=== PATIENT | female | born 1930 | race Caucasian/White ===

== ENCOUNTER 2017-07-07 19:16 | Inpatient (IN) | payer MEDICARE, OTHER ==
[2017-07-07 19:16] VITALS: BMI 20.9
[2017-07-07] MEDS ORDERED: Sodium Chloride 0.9% 1,000 ML IV ONE (19:36)
--- NOTE | 2017-07-07 19:39 | C.PDOC ---
History Of Present Illness 87 year old female with PMHx of pulmonary fibrosis presents to the ED c/o right sided abdominal pain radiating to her back for the past 3 days. Patient states she has not been able to eat or sleep due to her pain. Patient is currently moaning in pain, with rapid breathin .Patient denies fever, chills, nausea, vomit, SOB, CP, weakness, numbness. Chief Complaint (Nursing): Abdominal Pain History Per: Patient, Family History/Exam Limitations: no limitations Onset/Duration Of Symptoms: Days Current Symptoms Are (Timing): Still Present Location Of Pain/Discomfort: RUQ, RLQ Radiation Of Pain To:: Back Quality Of Discomfort: "Pain" Associated Symptoms: Diarrhea, Loss Of Appetite Exacerbating Factors: None Alleviating Factors: None Recent travel outside of the [place]: No Additional History Per: Patient Abnormal Vaginal Bleeding: No Past Medical History Reviewed: Historical Data, Nursing Documentation, Vital Signs Vital Signs: Last Vital Signs Temp 98.6 F 07/08/17 00:15 Pulse 115 H 07/08/17 00:15 Resp 18 07/08/17 01:03 BP 108/54 L 07/08/17 00:15 Pulse Ox 99 07/08/17 00:15 - Medical History PMH: CHF Denies: Chronic Kidney Disease Other PMH: Pulmonary fibrosis Surgical History: Hernia Repair (Abdominal) Family History: States: Unknown Family Hx - Social History Hx Tobacco Use: No Hx Alcohol Use: No Hx Substance Use: No - Immunization History Hx Tetanus Toxoid Vaccination: No Hx Influenza Vaccination: No Hx Pneumococcal Vaccination: No Review Of Systems Constitutional: Negative for: Fever, Chills Cardiovascular: Negative for: Chest Pain Respiratory: Negative for: Cough, Shortness of Breath Gastrointestinal: Positive for: Abdominal Pain, Diarrhea Genitourinary: Negative for: Dysuria Musculoskeletal: Positive for: Back Pain Skin: Negative for: Rash Neurological: Negative for: Weakness, Numbness, Headache Physical Exam - Physical Exam Appears: Non-toxic, In Acute Distress (secondary to pain, moaning in pain) Skin: Normal Color, Warm, Dry Head: Atraumatic, Normacephalic Eye(s): bilateral: Normal Inspection Nose: No Discharge, No Deformity Oral Mucosa: Moist Neck: Normal ROM, Supple Chest: Symmetrical Cardiovascular: Rhythm Regular (Tachycardic), No Murmur Respiratory: No Rales, No Rhonchi, No Wheezing, Other (B/L crackles right hemithorax, egophony positive) Gastrointestinal/Abdominal: Soft, Tenderness (Right sided abdomen ), No Guarding , No Rebound Extremity: Normal ROM, No Pedal Edema, Capillary Refill (< 2 seconds), No Swelling Pulses: Left Dorsalis Pedis: Normal, Right Dorsalis Pedis: Normal Neurological/Psych: Oriented x3, Normal Speech, Normal Cognition Gait: Steady ED Course And Treatment - Laboratory Results Result Diagrams: 07/07/17 20:16 07/07/17 20:42 ECG: Interpreted By Me, Viewed By Me ECG Rhythm: Sinus Tachycardia ECG Interpretation: No Acute Changes Rate From EC O2 Sat by Pulse Oximetry: 93 (On RA) - Radiology CXR: Interpreted by Me, Viewed By Mo CXR Interpretation: Yes: Other (Fibrotic changes throughout both lungs, unchanged from prior) - CT Scan/US CT abd/pelvis Other Rad Studies (CT/US): Read By Radiologist, Radiology Report Reviewed CT/US Interpretation: EXAM: CT Abdomen and Pelvis Without Intravenous Contrast. CLINICAL HISTORY: 87 years old, female; Pain; Abdominal pain; Generalized; Additional info: Abd pain. TECHNIQUE: Axial computed tomography images of the abdomen and pelvis without intravenous contrast. All CT. scans at this facility use one or more dose reduction techniques, viz.: automated exposure control;. ma/kV adjustment per patient size (including targeted exams where dose is matched to indication; i.e. head); or iterative reconstruction technique. Coronal and sagittal reformatted images were created and reviewed. COMPARISON: No relevant prior studies available. FINDINGS: Limitations: Lack of intravenous contrast. Motion artifact - mild. Lower thorax: Coronary artery calcifications. Extensive pulmonary fibrosis. Patchy and confluent. airspace disease throughout lung bases. ABDOMEN: Liver: Unremarkable. Gallbladder and bile ducts: Gallstones. No significant ductal dilation. Pancreas: Unremarkable. No ductal dilation. Spleen: No splenomegaly. Adrenals: Mild hypertrophy of adrenal glands. Kidneys and ureters: No renal calculi. No hydronephrosis.Stomach and bowel: Fluid within small bowel. Fluid/loose stool within large bowel. No definite. mural thickening. Few minimally distended loops of small bowel, likely ileus. Appendix: No findings to suggest acute appendicitis. PELVIS: Bladder: Unremarkable. No stones. Reproductive: Unremarkable as visualized. ABDOMEN and PELVIS: Intraperitoneal space: No significant fluid collection. No free air. Bones/joints: Mild degenerative changes of spine. Mild compression deformity T12 vertebral body,. chronic. Soft tissues: Small umbilical hernia containing fat. Vasculature: Mild atherosclerotic disease. No aneurysm. Lymph nodes: No pathologically enlarged lymph nodes. IMPRESSION: 1. Probable multifocal pneumonia superimposed on extensive fibrosis. 2. Fluid/loose stool within bowel may suggest diarrhea illness. 3. Incidental/non-acute findings are described above. Medical Decision Making Medical Decision Making: Impression: abdominal pain Plan: * CT abd/pelvis * CXR * EKG * Labs * Morphine 4 mg IVP * IV fluids * Blood culture Disposition - Disposition Disposition: HOSPITALIZED Disposition Time: 05:50 Condition: STABLE - Clinical Impression Clinical Impression: Pneumonia, Abdominal wall pain - Scribe Statement The provider has reviewed the documentation as recorded by the Scribe Lawson Peterson All medical record entries made by the Scribe were at my direction and personally dictated by me. I have reviewed the chart and agree that the record accurately reflects my personal performance of the history, physical exam, medical decision making, and the department course for this patient. I have also personally directed, reviewed, and agree with the discharge instructions and disposition.
[2017-07-07] MEDS ORDERED: Morphine 4 MG/ML VIAL ONE (19:50)
[2017-07-07 20:19] LABS: HEMOGLOBIN 12.8 g/dL (11.0-16.0); MONO # 0.6 K/uL (0.0-0.8); NRBC % 0.1 % (0.0-2.0); RBC 4.44 Mil/uL (3.80-5.20); RED CELL DISTRIBUTION WIDTH 13.9 % (11.5-14.5)
[2017-07-07 20:21] LABS: BASO % 0.2 % (0.0-2.0); LYMPH # 0.8 K/uL (1.0-4.3); LYMPH % 12.1 % (20.0-40.0); MEAN CELL VOLUME 85.7 fL (81.0-99.0); MEAN CORPUSCULAR HEMOGLOBIN 28.9 pg (27.0-31.0); MEAN CORPUSCULAR HGB CONC 33.7 g/dL (33.0-37.0); MEAN PLATELET VOLUME 9.4 fL (7.2-11.7); MONO % 9.8 % (0.0-10.0); NEUT # 5.1 K/uL (1.8-7.0); NEUT % 77.9 % (50.0-75.0); WHITE BLOOD COUNT 6.5 K/uL (4.8-10.8)
[2017-07-07] MEDS ORDERED: Albuterol-Ipratrop 3 mg / 0.5 (3 ml) UD ONE (20:45)
--- NOTE | 2017-07-07 20:57 | CT ---
EXAM: CT Abdomen and Pelvis Without Intravenous Contrast CLINICAL HISTORY: 87 years old, female; Pain; Abdominal pain; Generalized; Additional info: Abd pain TECHNIQUE: Axial computed tomography images of the abdomen and pelvis without intravenous contrast. All CT scans at this facility use one or more dose reduction techniques, viz.: automated exposure control; ma/kV adjustment per patient size (including targeted exams where dose is matched to indication; i.e. head); or iterative reconstruction technique. Coronal and sagittal reformatted images were created and reviewed. COMPARISON: No relevant prior studies available. FINDINGS: Limitations: Lack of intravenous contrast. Motion artifact - mild. Lower thorax: Coronary artery calcifications. Extensive pulmonary fibrosis. Patchy and confluent airspace disease throughout lung bases. ABDOMEN: Liver: Unremarkable. Gallbladder and bile ducts: Gallstones. No significant ductal dilation. Pancreas: Unremarkable. No ductal dilation. Spleen: No splenomegaly. Adrenals: Mild hypertrophy of adrenal glands. Kidneys and ureters: No renal calculi. No hydronephrosis. Stomach and bowel: Fluid within small bowel. Fluid/loose stool within large bowel. No definite mural thickening. Few minimally distended loops of small bowel, likely ileus. Appendix: No findings to suggest acute appendicitis. PELVIS: Bladder: Unremarkable. No stones. Reproductive: Unremarkable as visualized. ABDOMEN and PELVIS: Intraperitoneal space: No significant fluid collection. No free air. Bones/joints: Mild degenerative changes of spine. Mild compression deformity T12 vertebral body, chronic. Soft tissues: Small umbilical hernia containing fat. Vasculature: Mild atherosclerotic disease. No aneurysm. Lymph nodes: No pathologically enlarged lymph nodes. IMPRESSION: 1. Probable multifocal pneumonia superimposed on extensive fibrosis. 2. Fluid/loose stool within bowel may suggest diarrhea illness. 3. Incidental/non-acute findings are described above.
[2017-07-07 21:00] LABS: INR 1.4; PROTHROMBIN TIME 15.4 SECONDS (9.7-12.2)
[2017-07-07 21:08] LABS: ALB/GLOB RATIO 0.9 (1.0-2.1); ALBUMIN 3.3 g/dL (3.5-5.0); ALT/SGPT 22 U/L (9-52); AST/SGOT 30 U/L (14-36); BLOOD UREA NITROGEN 37 mg/dL (7-17); CALCIUM 7.9 mg/dl (8.6-10.4); GFR AFRICAN-AMERICAN > 60; GFR NON-AFRICAN AMERICAN 59; LIPASE 45 U/L (23-300)
[2017-07-07 21:20] LABS: B-TYPE NATRIURETIC PEPTIDE 580 pg/mL (0-900)
[2017-07-07] MEDS ORDERED: cefTRIAXone IV 1 gm in Dextros 50 ML IVPB STA (21:32)
[2017-07-07] MEDS ORDERED: Azithromycin 500 MG in Sodium Chloride 0.9% 250 ML IVPB STA (21:32)
[2017-07-08] MEDS ORDERED: Pneumococcal 23-Valent Vaccine IM ONE (00:28)
[2017-07-08] MEDS ORDERED: raNITIdine HCl 150 mg/10 ml Soln Cup PO PRN (00:34)
[2017-07-08] MEDS ORDERED: Morphine 4 MG/ML VIAL IVP PRN (00:48)
[2017-07-08] MEDS ORDERED: Potassium Chloride 20 mEq/15 ml LIQ UD PO ONE (00:48)
[2017-07-08] MEDS: Promethazine/Cod 6.25mg-10mg/5ml Syr UD PO PRN ×2 (01:22→10:38)
[2017-07-08] MEDS: Albuterol-Ipratrop 3 mg / 0.5 (3 ml) UD INH SCH ×5 (06:13→19:29)
[2017-07-08 08:22] LABS: BASO % 0.3 % (0.0-2.0); EOS % 0.1 % (0.0-4.0); HEMOGLOBIN 10.9 g/dL (11.0-16.0); LYMPH # 0.8 K/uL (1.0-4.3); LYMPH % 13.9 % (20.0-40.0); MEAN CELL VOLUME 86.2 fL (81.0-99.0); MEAN CORPUSCULAR HEMOGLOBIN 28.7 pg (27.0-31.0); MEAN CORPUSCULAR HGB CONC 33.3 g/dL (33.0-37.0); MEAN PLATELET VOLUME 9.5 fL (7.2-11.7); MONO # 0.4 K/uL (0.0-0.8); MONO % 6.3 % (0.0-10.0); NEUT # 4.6 K/uL (1.8-7.0); NEUT % 79.4 % (50.0-75.0); RBC 3.79 Mil/uL (3.80-5.20); RED CELL DISTRIBUTION WIDTH 14.2 % (11.5-14.5); WHITE BLOOD COUNT 5.7 K/uL (4.8-10.8)
[2017-07-08 08:51] LABS: ALB/GLOB RATIO 0.8 (1.0-2.1); ALBUMIN 2.8 g/dL (3.5-5.0); ALT/SGPT 22 U/L (9-52); AST/SGOT 26 U/L (14-36); BLOOD UREA NITROGEN 37 mg/dL (7-17); CALCIUM 7.7 mg/dl (8.6-10.4); GFR AFRICAN-AMERICAN > 60; GFR NON-AFRICAN AMERICAN 59
[2017-07-08] MEDS ORDERED: cefTRIAXone IV 1 gm in Dextros 1 GM in Sodium Chloride 0.9% 100 ML IVPB SCH (10:00)
[2017-07-08] MEDS: Dorzolamide 2% Opht Sol 10ml OU SCH ×3 (10:36→18:56)
[2017-07-08] MEDS: Brimonidine 0.2% Opth Sol (5ml) OU SCH ×3 (10:36→18:57)
[2017-07-08] MEDS: Enoxaparin 40 mg Syringe SC SCH (10:37)
[2017-07-08] MEDS: Calcium-Vit D 500 mg-200 Units Tab UD PO SCH ×2 (10:37→18:56)
--- NOTE | 2017-07-08 10:58 | RAD ---
PROCEDURE: CHEST RADIOGRAPH, 1 VIEW HISTORY: abd pain COMPARISON: Comparison is made with 01/17/2015 FINDINGS: LUNGS: Diffuse reticular and opacities are again seen more prominent at the lower lobes suggestive of interstitial lung disease and possible lung fibrosis. PLEURA: No pneumothorax or pleural fluid seen. CARDIOVASCULAR: Normal. OSSEOUS STRUCTURES: No significant abnormalities. VISUALIZED UPPER ABDOMEN: Normal. OTHER FINDINGS: None. IMPRESSION: Chronic interstitial lung disease. No evidence of free air in the upper abdomen in this portable study.
--- NOTE | 2017-07-08 12:22 | CP.PCM.CON ---
History of Present Illness - History of Present Illness History of Present Illness: Reason for consultation: cough and shortness of breath 87-year-old female with history of pulmonary fibrosis, urinary incontinence and gastritis presented to emergency room complaining of cough and shortness of breath. Patient was started on IV antibiotics with a diagnosis of pneumonia. Patient had CAT scan of chest done in 2016 consistent with extensive pulmonary fibrosis. Considering patient age biopsy was not done and patient was treated with steroids. Patient denies fever chills but complaining of abdominal pain. No nausea vomiting She has never smoked and denies any allergies. Patient is from [facility] but denies travel in the last 4 years. She denies any recent sick contacts. Review of Systems - Review of Systems All systems: reviewed and no additional remarkable complaints except (dry cough) Past Patient History - Infectious Disease Hx of Infectious Diseases: None - Tetanus Immunizations Tetanus Immunization: Unknown - Past Medical History & Family History Past Medical History?: Yes - Past Social History Smoking Status: Never Smoked - CARDIAC Hx Congestive Heart Failure: Yes - PULMONARY Hx Respiratory Disorders: Yes (Pulmonary Fibrosis) Other/Comment: Pt states she has pulmonary fibrosis - NEUROLOGICAL Hx Neurological Disorder: No - HEENT Hx HEENT Problems: Yes Hx Blind: Yes (right eye blind) Hx Cataracts: Yes (had cataract eye surgery bilateral) Hx Glaucoma: Yes (left eye) - RENAL Hx Chronic Kidney Disease: No - ENDOCRINE/METABOLIC Hx Endocrine Disorders: No - HEMATOLOGICAL/ONCOLOGICAL Hx Blood Disorders: No - INTEGUMENTARY Hx Dermatological Problems: No - MUSCULOSKELETAL/RHEUMATOLOGICAL Hx Musculoskeletal Disorders: Yes Hx Falls: No Hx Fractures: Yes (Right foot 1999) - GASTROINTESTINAL Hx Gastrointestinal Disorders: Yes Hx Diarrhea: Yes (x3 days) Other/Comment: Poor appetite - GENITOURINARY/GYNECOLOGICAL Hx Genitourinary Disorders: Yes Hx Incontinence: Yes (had prior surgery for urinary incontinence) - PSYCHIATRIC Hx Substance Use: No - SURGICAL HISTORY Hx Surgeries: Yes (urinary incontinence sx,) Hx Cataract Extraction: Yes (B/L) Hx Herniorrhaphy: Yes Hx Musculoskeletal Surgery: Yes (Right foot) Other/Comment: abdominal hernia repair - ANESTHESIA Hx Anesthesia: Yes Hx Anesthesia Reactions: No Hx Malignant Hyperthermia: No Meds Allergies/Adverse Reactions: Allergies Allergy/AdvReac Type Severity Reaction Status Date / Time No Known Allergies Allergy Verified 07/07/17 19:30 - Medications Medications: Current Medications Acetaminophen (Tylenol 325mg Tab) 650 mg PO Q6 PRN PRN Reason: Fever >100.4 F Albuterol/Ipratropium (Duoneb 3 Mg/0.5 Mg (3 Ml) Ud) 3 ml INH RQ4 [facility] Last Admin: 07/08/17 11:40 Dose: 3 ml Brimonidine Tartrate (Alphagan 0.2% Opht) 1 ml OU TID [facility] Last Admin: 07/08/17 10:36 Dose: 1 drop Calcium/Vitamin D (Oyster Shell Calcium/Vitamin D 500 Mg-200 Iu) 1 tab PO BID [facility] Last Admin: 07/08/17 10:37 Dose: 1 tab Dorzolamide HCl (Trusopt) 1 ml OU TID [facility] Last Admin: 07/08/17 10:36 Dose: 1 drop Enoxaparin Sodium (Lovenox) 40 mg SC DAILY [facility] Last Admin: 07/08/17 10:37 Dose: 40 mg Ceftriaxone Sodium 1 gm/ (Sodium Chloride) 150 mls @ 50 mls/30 min IVPB DAILY [facility] Last Admin: 07/08/17 10:46 Dose: 50 mls/30 min Azithromycin 500 mg/ Sodium (Chloride) 250 mls @ 167 mls/hr IVPB Q24H [facility] Ketorolac Tromethamine (Toradol) 15 mg IVP Q6 PRN PRN Reason: Pain, moderate (4-7) Last Admin: 07/08/17 01:21 Dose: 15 mg Methylprednisolone (Solu-Medrol) 40 mg IVP Q6 [facility] Montelukast Sodium (Singulair) 10 mg PO HS [facility] Morphine Sulfate (Morphine) 1 mg IVP Q6 PRN PRN Reason: Pain, severe (8-10) Promethazine HCl/Codeine (Phenergan/Codeine Oral Syrup) 5 ml PO Q4 PRN PRN Reason: Cough Last Admin: 07/08/17 10:38 Dose: 5 ml Ranitidine HCl (Zantac Soln 5ml) 150 mg PO BID PRN PRN Reason: Dyspepsia Fluticasone/Salmeterol (Advair Diskus 500/50) 1 puff INH RQ12 [facility] Tiotropium [place] (Spiriva) 18 mcg INH RQ24 [facility] Physical Exam - Head Exam Head Exam: ATRAUMATIC, NORMOCEPHALIC - Eye Exam Eye Exam: Normal appearance - ENT Exam ENT Exam: Mucous Membranes Moist - Neck Exam Neck exam: Positive for: Normal Inspection - Respiratory Exam Respiratory Exam: Rales - Cardiovascular Exam Cardiovascular Exam: REGULAR RHYTHM - GI/Abdominal Exam GI & Abdominal Exam: Normal Bowel Sounds, Soft - Extremities Exam Extremities exam: Positive for: normal inspection Results - Vital Signs Recent Vital Signs: Last Vital Signs Temp 98.5 F 07/08/17 09:03 Pulse 102 H 07/08/17 09:03 Resp 18 07/08/17 09:03 BP 90/56 L 07/08/17 09:03 Pulse Ox 96 07/08/17 09:03 - Labs Result Diagrams: 07/08/17 08:13 07/08/17 08:13 Labs: Laboratory Results - last 24 hr 07/07/17 07/07/17 07/07/17 20:16 20:31 20:42 WBC 6.5 RBC 4.44 Hgb 12.8 Hct 38.0 MCV 85.7 MCH 28.9 MCHC 33.7 RDW 13.9 Plt Count 194 MPV 9.4 Neut % (Auto) 77.9 H Lymph % (Auto) 12.1 L [place] % (Auto) 9.8 Eos % (Auto) 0.0 Baso % (Auto) 0.2 Neut # (Auto) 5.1 Lymph # (Auto) 0.8 L [place] # (Auto) 0.6 Eos # (Auto) 0.0 Baso # (Auto) 0.0 PT 15.4 H INR 1.4 APTT 36 H Sodium Potassium Chloride Carbon Dioxide Anion Gap BUN Creatinine Est GFR ( Amer) Est GFR (Non-Af Amer) Random Glucose Lactic Acid 1.9 Calcium Total Bilirubin AST ALT Alkaline Phosphatase Troponin I NT-Pro-B Natriuret Pep Total Protein Albumin Globulin Albumin/Globulin Ratio Lipase TSH 3rd Generation Influenza Typ A,B (EIA) 07/07/17 07/07/17 07/08/17 20:42 22:49 08:13 WBC 5.7 RBC 3.79 L Hgb 10.9 L Hct 32.7 L MCV 86.2 MCH 28.7 MCHC 33.3 RDW 14.2 Plt Count 160 MPV 9.5 Neut % (Auto) 79.4 H Lymph % (Auto) 13.9 L [place] % (Auto) 6.3 Eos % (Auto) 0.1 Baso % (Auto) 0.3 Neut # (Auto) 4.6 Lymph # (Auto) 0.8 L [place] # (Auto) 0.4 Eos # (Auto) 0.0 Baso # (Auto) 0.0 PT INR APTT Sodium 136 Potassium 3.3 L Chloride 97 L Carbon Dioxide 29 Anion Gap 13 BUN 37 H Creatinine 0.9 Est GFR ( Amer) > 60 Est GFR (Non-Af Amer) 59 Random Glucose 91 Lactic Acid Calcium 7.9 L Total Bilirubin 1.1 AST 30 ALT 22 Alkaline Phosphatase 72 Troponin I < 0.0120 NT-Pro-B Natriuret Pep 580 Total Protein 7.1 Albumin 3.3 L Globulin 3.8 Albumin/Globulin Ratio 0.9 L Lipase 45 TSH 3rd Generation Influenza Typ A,B (EIA) Negative for flu a/b 07/08/17 08:13 WBC RBC Hgb Hct MCV MCH MCHC RDW Plt Count MPV Neut % (Auto) Lymph % (Auto) [place] % (Auto) Eos % (Auto) Baso % (Auto) Neut # (Auto) Lymph # (Auto) [place] # (Auto) Eos # (Auto) Baso # (Auto) PT INR APTT Sodium 138 Potassium 4.2 Chloride 104 Carbon Dioxide 28 Anion Gap 10 BUN 37 H Creatinine 0.9 Est GFR ( Amer) > 60 Est GFR (Non-Af Amer) 59 Random Glucose 78 Lactic Acid Calcium 7.7 L Total Bilirubin 0.6 AST 26 ALT 22 Alkaline Phosphatase 61 Troponin I NT-Pro-B Natriuret Pep Total Protein 6.3 Albumin 2.8 L Globulin 3.4 Albumin/Globulin Ratio 0.8 L Lipase TSH 3rd Generation 2.59 Influenza Typ A,B (EIA) Assessment & Plan (1) Pulmonary fibrosis Status: Acute Comment: pulmonary fibrosis of UIP pattern. Start IV steroids. Continue antibiotics for now. Check pro calcitonin level. Continue antitussive
[2017-07-08] MEDS: Sodium Chloride 0.9% 1,000 ML IV SCH (18:00)
[2017-07-08] MEDS: MethylPREDNISolone 40 mg Vial IVP SCH (18:55)
[2017-07-08] MEDS: Promethazine/Cod 6.25mg-10mg/5ml Syr UD PO SCH (19:02)
[2017-07-08] MEDS: Azithromycin 500 MG in Sodium Chloride 0.9% 250 ML IVPB SCH (22:55)
[2017-07-09] MEDS: MethylPREDNISolone 40 mg Vial IVP SCH ×4 (00:36→17:49)
[2017-07-09] MEDS: Promethazine/Cod 6.25mg-10mg/5ml Syr UD PO SCH ×6 (00:36→20:10)
--- NOTE | 2017-07-09 00:54 | CP.PCM.HP ---
History of Present Illness - History of Present Illness History of Present Illness: CC: RUQ abdominal Pain History of Present Illness: An 87 year old female with PMHx of Severe pulmonary fibrosis presents to the ED c/o right sided abdominal pain radiating to her back for the past 3 days. Patient states she has not been able to eat or sleep due to her pain. Patient is currently moaning in pain, with rapid breathing .Patient denies fever, chills , nausea, vomit or weakness, numbness. In the ER, patient was worked up and showed right sided Pneumonia and started on Iv Antibiotics. Currently persistent dry cough with associated dyspnea. PAtient was started o IV Antibiotics and Steroid besides all supportive treatment. Present on Admission - Present on Admission Any Indicators Present on Admission: No History of DVT/PE: No History of Uncontrolled Diabetes: No Urinary Catheter: No Decubitus Ulcer Present: No Review of Systems - Review of Systems All systems: reviewed and no additional remarkable complaints except - Respiratory Respiratory: As Per HPI - Gastrointestinal Gastrointestinal: As Per HPI Past Patient History - Infectious Disease Hx of Infectious Diseases: None - Tetanus Immunizations Tetanus Immunization: Unknown - Past Medical History & Family History Past Medical History?: Yes Past Family History: Reviewed and not pertinent - Past Social History Smoking Status: Never Smoked Alcohol: None Drugs: Denies - CARDIAC Hx Congestive Heart Failure: Yes - PULMONARY Hx Respiratory Disorders: Yes (Pulmonary Fibrosis) Other/Comment: Pt states she has pulmonary fibrosis - NEUROLOGICAL Hx Neurological Disorder: No - HEENT Hx HEENT Problems: Yes Hx Blind: Yes (right eye blind) Hx Cataracts: Yes (had cataract eye surgery bilateral) Hx Glaucoma: Yes (left eye) - RENAL Hx Chronic Kidney Disease: No - ENDOCRINE/METABOLIC Hx Endocrine Disorders: No - HEMATOLOGICAL/ONCOLOGICAL Hx Blood Disorders: No - INTEGUMENTARY Hx Dermatological Problems: No - MUSCULOSKELETAL/RHEUMATOLOGICAL Hx Musculoskeletal Disorders: Yes Hx Falls: No Hx Fractures: Yes (Right foot 1999) - GASTROINTESTINAL Hx Gastrointestinal Disorders: Yes Hx Diarrhea: Yes (x3 days) Other/Comment: Poor appetite - GENITOURINARY/GYNECOLOGICAL Hx Genitourinary Disorders: Yes Hx Incontinence: Yes (had prior surgery for urinary incontinence) - PSYCHIATRIC Hx Substance Use: No - SURGICAL HISTORY Hx Surgeries: Yes (urinary incontinence sx,) Hx Cataract Extraction: Yes (B/L) Hx Herniorrhaphy: Yes Hx Musculoskeletal Surgery: Yes (Right foot) Other/Comment: abdominal hernia repair - ANESTHESIA Hx Anesthesia: Yes Hx Anesthesia Reactions: No Hx Malignant Hyperthermia: No Meds Allergies/Adverse Reactions: Allergies Allergy/AdvReac Type Severity Reaction Status Date / Time No Known Allergies Allergy Verified 07/07/17 19:30 Physical Exam - Constitutional Appears: In Acute Distress, Chronically Ill - Head Exam Head Exam: ATRAUMATIC, NORMAL INSPECTION, NORMOCEPHALIC - Eye Exam Eye Exam: EOMI, Normal appearance, PERRL Pupil Exam: NORMAL ACCOMODATION, PERRL - ENT Exam ENT Exam: Mucous Membranes Dry, Normal Exam - Neck Exam Neck exam: Positive for: Full Rom, Normal Inspection - Respiratory Exam Respiratory Exam: Accessory Muscle Use, Decreased Breath Sounds, Prolonged Expiratory Phase, Wheezes - Cardiovascular Exam Cardiovascular Exam: REGULAR RHYTHM, +S1, +S2 - GI/Abdominal Exam GI & Abdominal Exam: Normal Bowel Sounds, Soft. absent: Tenderness - Extremities Exam Extremities exam: Positive for: full ROM, normal capillary refill, normal inspection - Back Exam Back exam: FULL ROM, NORMAL INSPECTION. absent: CVA tenderness (L), CVA tenderness (R) - Neurological Exam Neurological exam: Alert, CN II-XII Intact, Normal Gait, Oriented x3, Reflexes Normal - Psychiatric Exam Psychiatric exam: Normal Affect, Normal Mood - Skin Skin Exam: Dry, Intact, Normal Color, Warm Results - Vital Signs Recent Vital Signs: Last Vital Signs Temp 98.7 F 07/08/17 16:22 Pulse 94 H 07/08/17 16:22 Resp 20 07/08/17 16:22 BP 90/51 L 07/08/17 16:22 Pulse Ox 99 07/08/17 16:22 - Labs Result Diagrams: 07/12/17 08:22 07/12/17 08:22 Labs: Laboratory Results - last 24 hr 07/08/17 07/08/17 08:13 08:13 WBC 5.7 RBC 3.79 L Hgb 10.9 L Hct 32.7 L MCV 86.2 MCH 28.7 MCHC 33.3 RDW 14.2 Plt Count 160 MPV 9.5 Neut % (Auto) 79.4 H Lymph % (Auto) 13.9 L [place] % (Auto) 6.3 Eos % (Auto) 0.1 Baso % (Auto) 0.3 Neut # (Auto) 4.6 Lymph # (Auto) 0.8 L [place] # (Auto) 0.4 Eos # (Auto) 0.0 Baso # (Auto) 0.0 Sodium 138 Potassium 4.2 Chloride 104 Carbon Dioxide 28 Anion Gap 10 BUN 37 H Creatinine 0.9 Est GFR ( Amer) > 60 Est GFR (Non-Af Amer) 59 Random Glucose 78 Calcium 7.7 L Total Bilirubin 0.6 AST 26 ALT 22 Alkaline Phosphatase 61 Total Protein 6.3 Albumin 2.8 L Globulin 3.4 Albumin/Globulin Ratio 0.8 L TSH 3rd Generation 2.59 - Imaging and Cardiology Chest x-ray Status: Report reviewed by me Additional comment: IMPRESSION: Chronic interstitial lung disease. No evidence of free air in the upper abdomen in this portable study. CT Abdomen/Pelvis: Status: Report reviewed by me Additional comment: IMPRESSION: 1. Probable multifocal pneumonia superimposed on extensive fibrosis. 2. Fluid/loose stool within bowel may suggest diarrhea illness. 3. Incidental/non-acute findings are described above. Assessment & Plan (1) Multifocal pneumonia Assessment and Plan: Pulmonary Fibrosis Status: Acute Priority: High
[2017-07-09] MEDS: Albuterol-Ipratrop 3 mg / 0.5 (3 ml) UD INH SCH ×6 (01:27→20:45)
[2017-07-09] MEDS: Sodium Chloride 0.9% 1,000 ML IV SCH ×2 (04:10→14:06)
[2017-07-09 08:33] LABS: BASO % 0.2 % (0.0-2.0); EOS % 0.1 % (0.0-4.0); MEAN CELL VOLUME 86.3 fL (81.0-99.0); MEAN CORPUSCULAR HEMOGLOBIN 29.1 pg (27.0-31.0); MEAN CORPUSCULAR HGB CONC 33.7 g/dL (33.0-37.0); MEAN PLATELET VOLUME 9.5 fL (7.2-11.7); MONO # 0.1 K/uL (0.0-0.8); MONO % 2.1 % (0.0-10.0); NEUT # 3.8 K/uL (1.8-7.0); NEUT % 77.6 % (50.0-75.0); NRBC % 0.2 % (0.0-2.0); PLATELET COUNT 187 K/uL (130-400); RBC 3.77 Mil/uL (3.80-5.20); RED CELL DISTRIBUTION WIDTH 14.3 % (11.5-14.5); WHITE BLOOD COUNT 4.9 K/uL (4.8-10.8)
[2017-07-09] MEDS: Fluticasone-Salmeterol 500-50mcg Diskus INH SCH ×2 (09:00→20:45)
[2017-07-09] MEDS: Enoxaparin 40 mg Syringe SC SCH (09:15)
[2017-07-09] MEDS: Calcium-Vit D 500 mg-200 Units Tab UD PO SCH ×2 (09:16→17:45)
[2017-07-09] MEDS: Dorzolamide 2% Opht Sol 10ml OU SCH ×3 (09:16→17:48)
[2017-07-09] MEDS: Brimonidine 0.2% Opth Sol (5ml) OU SCH ×3 (09:16→18:30)
[2017-07-09 09:29] LABS: ALB/GLOB RATIO 0.9 (1.0-2.1); ALT/SGPT 20 U/L (9-52); AST/SGOT 28 U/L (14-36); BLOOD UREA NITROGEN 29 mg/dL (7-17); CALCIUM 7.1 mg/dl (8.6-10.4); GFR AFRICAN-AMERICAN > 60; GFR NON-AFRICAN AMERICAN > 60
[2017-07-09] MEDS ORDERED: cefTRIAXone IV 1 gm in Dextros 50 ML IVPB SCH (10:00)
[2017-07-09 10:11] LABS: BANDS 9 % (0-2); LYMPHOCYTE 19 % (20-40); METAMYELOCYTE 1 % (0-0); MONOCYTE 5 % (0-10); NEUTROPHIL 66 % (50-75); NUCLEATED RED BLOOD CELL 1 % (0-0); TOTAL CELLS COUNTED 100
[2017-07-09 10:12] LABS: ANISOCYTOSIS SLIGHT; OVALOCYTES SLIGHT; PLATELET ESTIMATE NORMAL (NORMAL)
--- NOTE | 2017-07-09 15:38 | CP.PCM.CON ---
History of Present Illness - History of Present Illness History of Present Illness: 87-year-old female with history of pulmonary fibrosis, urinary incontinence and gastritis presented to emergency room complaining of cough and shortness of breath. Patient was started on IV antibiotics with a diagnosis of pneumonia. . She has never smoked and denies any allergies. Patient is from [facility] but denies travel in the last 4 years. She denies any recent sick contacts. [facility] Patient had CAT scan of chest done in 2016 consistent with extensive pulmonary fibrosis. Considering patient age biopsy was not done and patient was treated with steroids Review of Systems - Review of Systems Systems not reviewed;Unavailable: Altered Mental Status All systems: reviewed and no additional remarkable complaints except - Constitutional Constitutional: As Per HPI - EENT Eyes: absent: As Per HPI, Blind Spots, Blurred Vision, Change in Vision, Decreased Night Vision, Diplopia, Discharge, Dry Eye, Exophthalmos, Floaters, Irritation, Itchy Eyes, Loss of Peripheral Vision, Pain, Photophobia, Requires Corrective Lenses, Sees Flashes, Spots in Vision, Tunnel Vision, Other Visual Disturbances, Loss of Vision, Other Ears: absent: As Per HPI, Decreased Hearing, Ear Discharge, Ear Pain, Tinnitus, Abnormal Hearing, Disequilibrium, Dizziness, Other Nose/Mouth/Throat: absent: As Per HPI, Epistaxis, Nasal Congestion, Nasal Discharge, Nasal Obstruction, Nasal Trauma, Nose Pain, Post Nasal Drip, Sinus Pain, Sinus Pressure, Bleeding Gums, Change in Voice, Dental Pain, Dry Mouth, Dysphagia, Halitosis, Hoarsness, Lip Swelling, Mouth Lesions, Mouth Pain, Odynophagia, Sore Throat, Throat Swelling, Tongue Swelling, Facial Pain, Neck Pain, Neck Mass, Other - Breasts Breasts: absent: As Per HPI, Change in Shape, Mass, Pain, Nipple Discharge, Nipple Inversion, Skin Changes, Swelling, Other - Cardiovascular Cardiovascular: As Per HPI - Respiratory Respiratory: As Per HPI, Cough, Dyspnea - Gastrointestinal Gastrointestinal: absent: As Per HPI, Abdominal Pain, Belching, Bloating, Change in Bowel Habits, Change in Stool Character, Coffee Ground Emesis, Constipation, Cramping, Diarrhea, Dyspepsia, Dysphagia, Early Satiety, Excessive Flatus, Fecal Incontinence, Heartburn, Hematemesis, Hematochezia, Loose Stools, Melena, Nausea, Odynophagia, Temesmus, Vomiting, Other - Genitourinary Genitourinary: absent: As Per HPI, Change in Urinary Stream, Difficulty Urinating, Dysuria, Flank Pain, Hematuria, Pyuria, Nocturia, Urinary Incontinence, Urinary Frequency, Urinary Hesitance, Urinary Urgency, Voiding Freq/Small Amts, Freq UTI, Hx Renal/Bladder Calculi, Hx /Renal Surgery, Bladder Distension, Other - Reproductive: Female Reproductive:Female: absent: As Per HPI, Amenorrhea, Amenorrhea/ Control, Currently Menstual, Cycle <21 Days, Cycle >35 Days, Cycle Variable, Menses 1-7 Days, Menses >/= 8 Days, Menses Variable, Cycle > 4 Weeks Between, No Menses for 6 Months, Heavy Menses, Light Menses, Normal Menses, Spotting Between Cycles , S/P Hysterectomy, Menopausal, Post Menopausal, Premenarche, Abnormal Vaginal Bleeding, Dysmenorrhea, Dyspareunia, Genital Lesions, Genital Pruritis, Pelvic Pain, Prolapse Symptoms, Sexual Dysfunction, Vaginal Discharge, Vaginal Dryness , Vaginal Odor, Vaginal Pruritis, Other - Menstruation Menstruation: absent: As Per HPI, Amenorrhea, Amenorrhea/ Control, Currently Menstual, Cycle <21 Days, Cycle >35 Days, Cycle Variable, Menses 1-7 Days, Menses >/= 8 Days, Menses Variable, Cycle > 4 Weeks Between, No Menses for 6 Months, Heavy Menses, Light Menses, Normal Menses, Spotting Between Cycles , S/P Hysterectomy, Menopausal, Post Menopausal, Premenarche, Abnormal Vaginal Bleeding, Dysmenorrhea, Other - Musculoskeletal Musculoskeletal: absent: As Per HPI, Abnormal Gait, Arthralgias, Atrophy, Back Pain, Deformity, Joint Swelling, Limited Range of Motion, Loss of Height, Muscle Cramps, Muscle Weakness, Myalgias, Neck Pain, Numbness, Radiating Pain into Limb, Stiffness, Tingling, Other - Integumentary Integumentary: absent: As Per HPI, Acne, Alopecia, Bleeding Lesions, Change in Hair, Change in Nails, Change in Pigmentation, Changing Lesions, Dry Skin, Erythema, Furuncle, Hirsutism, Lesions, New Lesions, Non-Healing Lesions, Photosensitivity, Pruritus, Rash, Skin Pain, Skin Ulcer, Sores, Striae, Swelling , Unusual Bruising, Wounds, Jaundice, Other - Neurological Neurological: absent: As Per HPI, Abnormal Gait, Abnormal Hearing, Abnormal Movements, Abnormal Speech, Behavioral Changes, Burning Sensations, Confusion, Convulsions, Disequilibrium, Dizziness, Numbness, Focal Weakness, Frequent Falls , Headaches, Lack of Coordination, Loss of Vision, Memory Loss, Paresthesias, Radicular Pain, Restless Legs, Sensory Deficit, Syncope, Tingling, Tremor, Vertigo, Weakness, Other Visual Disturbances, Other - Psychiatric Psychiatric: absent: As Per HPI, Abnormal Sleep Pattern, Anhedonia, Anxiety, Auditory Hallucinations, Behavioral Changes, Change in Appetite, Change in Libido, Confusion, Depression, Difficulty Concentrating, Hallucinations, Homicidal Ideation, Hopelessness, Irritability, Memory Loss, Mood Swings, Panic Attacks, Paranoia, Suicidal Ideation, Visual Hallucinations, Tactile Hallucinations, Other - Endocrine Endocrine: absent: As Per HPI, Change in Body Appearance, Change in Libido, Cold Intolorance, Deepening of Voice, Excessive Sweating, Fatigue, Flushing, Heat Intolorance, Increase in Ring/Shoe/Hat Size, Palpitations, Polydipsia, Polyphagia, Polyuria, Other - Hematologic/Lymphatic Hematologic: absent: As Per HPI, Easy Bleeding, Easy Bruising, Lymphadenopathy, Other Past Patient History - Infectious Disease Hx of Infectious Diseases: None - Tetanus Immunizations Tetanus Immunization: Unknown - Past Medical History & Family History Past Medical History?: Yes - Past Social History Smoking Status: Never Smoked - CARDIAC Hx Congestive Heart Failure: Yes - PULMONARY Hx Respiratory Disorders: Yes (Pulmonary Fibrosis) Other/Comment: Pt states she has pulmonary fibrosis - NEUROLOGICAL Hx Neurological Disorder: No - HEENT Hx HEENT Problems: Yes Hx Blind: Yes (right eye blind) Hx Cataracts: Yes (had cataract eye surgery bilateral) Hx Glaucoma: Yes (left eye) - RENAL Hx Chronic Kidney Disease: No - ENDOCRINE/METABOLIC Hx Endocrine Disorders: No - HEMATOLOGICAL/ONCOLOGICAL Hx Blood Disorders: No - INTEGUMENTARY Hx Dermatological Problems: No - MUSCULOSKELETAL/RHEUMATOLOGICAL Hx Musculoskeletal Disorders: Yes Hx Falls: No Hx Fractures: Yes (Right foot 1999) - GASTROINTESTINAL Hx Gastrointestinal Disorders: Yes Hx Diarrhea: Yes (x3 days) Other/Comment: Poor appetite - GENITOURINARY/GYNECOLOGICAL Hx Genitourinary Disorders: Yes Hx Incontinence: Yes (had prior surgery for urinary incontinence) - PSYCHIATRIC Hx Substance Use: No - SURGICAL HISTORY Hx Surgeries: Yes (urinary incontinence sx,) Hx Cataract Extraction: Yes (B/L) Hx Herniorrhaphy: Yes Hx Musculoskeletal Surgery: Yes (Right foot) Other/Comment: abdominal hernia repair - ANESTHESIA Hx Anesthesia: Yes Hx Anesthesia Reactions: No Hx Malignant Hyperthermia: No Meds Allergies/Adverse Reactions: Allergies Allergy/AdvReac Type Severity Reaction Status Date / Time No Known Allergies Allergy Verified 07/07/17 19:30 - Medications Medications: Current Medications Acetaminophen (Tylenol 325mg Tab) 650 mg PO Q6 PRN PRN Reason: Fever >100.4 F Albuterol/Ipratropium (Duoneb 3 Mg/0.5 Mg (3 Ml) Ud) 3 ml INH RQ4 [facility] Last Admin: 07/09/17 11:26 Dose: 3 ml Brimonidine Tartrate (Alphagan 0.2% Opht) 1 ml OU TID [facility] Last Admin: 07/09/17 14:07 Dose: 1 drop Calcium/Vitamin D (Oyster Shell Calcium/Vitamin D 500 Mg-200 Iu) 1 tab PO BID [facility] Last Admin: 07/09/17 09:16 Dose: 1 tab Dorzolamide HCl (Trusopt) 1 ml OU TID [facility] Last Admin: 07/09/17 14:07 Dose: 1 drop Enoxaparin Sodium (Lovenox) 40 mg SC DAILY [facility] Last Admin: 07/09/17 09:15 Dose: 40 mg Azithromycin 500 mg/ Sodium (Chloride) 250 mls @ 167 mls/hr IVPB Q24H [facility] Last Admin: 07/08/17 22:55 Dose: 167 mls/hr Sodium Chloride (Sodium Chloride 0.9%) 1,000 mls @ 100 mls/hr IV .Q10H [facility] Last Admin: 07/09/17 14:06 Dose: Not Given Ceftriaxone Sodium 1 gm/ (Sodium Chloride) 100 mls @ 50 mls/30 min IVPB DAILY [facility] Last Admin: 07/09/17 10:06 Dose: 50 mls/30 min Ketorolac Tromethamine (Toradol) 15 mg IVP Q6 PRN PRN Reason: Pain, moderate (4-7) Last Admin: 07/08/17 01:21 Dose: 15 mg Methylprednisolone (Solu-Medrol) 40 mg IVP Q6 [facility] Last Admin: 07/09/17 14:05 Dose: 40 mg Montelukast Sodium (Singulair) 10 mg PO HS [facility] Last Admin: 07/08/17 22:55 Dose: 10 mg Morphine Sulfate (Morphine) 1 mg IVP Q6 PRN PRN Reason: Pain, severe (8-10) Promethazine HCl/Codeine (Phenergan/Codeine Oral Syrup) 5 ml PO Q4 [facility] Last Admin: 07/09/17 13:05 Dose: 5 ml Ranitidine HCl (Zantac Soln 5ml) 150 mg PO BID PRN PRN Reason: Dyspepsia Fluticasone/Salmeterol (Advair Diskus 500/50) 1 puff INH RQ12 [facility] Last Admin: 07/09/17 09:00 Dose: Not Given Tiotropium [place] (Spiriva) 18 mcg INH RQ24 [facility] Physical Exam - Constitutional Appears: Non-toxic, Confused, Chronically Ill - Head Exam Head Exam: ATRAUMATIC, NORMAL INSPECTION, NORMOCEPHALIC - Eye Exam Eye Exam: EOMI, PERRL. absent: Scleral icterus - ENT Exam ENT Exam: Mucous Membranes Dry, Normal External Ear Exam - Neck Exam Neck exam: Negative for: Lymphadenopathy - Respiratory Exam Respiratory Exam: Decreased Breath Sounds, Prolonged Expiratory Phase, Rhonchi - Cardiovascular Exam Cardiovascular Exam: REGULAR RHYTHM, +S1, +S2 - GI/Abdominal Exam GI & Abdominal Exam: Diminished Bowel Sounds, Soft. absent: Tenderness - Rectal Exam Rectal Exam: Deferred - Exam Exam: NORMAL INSPECTION - Extremities Exam Extremities exam: Positive for: pedal pulses present. Negative for: calf tenderness, pedal edema, tenderness - Back Exam Back exam: absent: CVA tenderness (L), CVA tenderness (R), paraspinal tenderness - Neurological Exam Neurological exam: Alert, CN II-XII Intact, Oriented x3, Reflexes Normal - Psychiatric Exam Psychiatric exam: Depressed - Skin Skin Exam: Dry Results - Vital Signs Recent Vital Signs: Last Vital Signs Temp 97.8 F 07/09/17 08:00 Pulse 100 H 07/09/17 08:00 Resp 20 07/09/17 08:00 BP 109/65 07/09/17 08:00 Pulse Ox 96 07/09/17 08:00 - Labs Result Diagrams: 07/09/17 08:24 07/09/17 08:24 Labs: Laboratory Results - last 24 hr 07/09/17 07/09/17 08:24 08:24 WBC 4.9 RBC 3.77 L Hgb 11.0 Hct 32.6 L MCV 86.3 MCH 29.1 MCHC 33.7 RDW 14.3 Plt Count 187 MPV 9.5 Neut % (Auto) 77.6 H Lymph % (Auto) 20.0 [place] % (Auto) 2.1 Eos % (Auto) 0.1 Baso % (Auto) 0.2 Neut # (Auto) 3.8 Lymph # (Auto) 1.0 [place] # (Auto) 0.1 Eos # (Auto) 0.0 Baso # (Auto) 0.0 Neutrophils % (Manual) 66 Band Neutrophils % 9 H Lymphocytes % (Manual) 19 L Monocytes % (Manual) 5 Metamyelocytes % 1 H Nucleated RBC % 1 H Platelet Estimate Normal Anisocytosis (manual) Slight Macrocytosis (manual) Slight Ovalocytes Slight Sodium 138 Potassium 4.0 Chloride 105 Carbon Dioxide 25 Anion Gap 12 BUN 29 H Creatinine 0.6 L Est GFR ( Amer) > 60 Est GFR (Non-Af Amer) > 60 Random Glucose 147 H Calcium 7.1 L Total Bilirubin 0.4 AST 28 ALT 20 Alkaline Phosphatase 69 Total Protein 6.3 Albumin 3.0 L Globulin 3.4 Albumin/Globulin Ratio 0.9 L TSH 3rd Generation 0.57 Assessment & Plan (1) Pneumonia Status: Acute (2) Bronchitis Status: Acute (3) Cough Status: Acute (4) Dyspnea Status: Acute (5) Hypoxia Status: Acute (6) Leukocytosis Status: Acute (7) Pulmonary fibrosis Status: Acute - Assessment and Plan (Free Text) Assessment: cont zithromax/ rocephin await cultures will follow
--- NOTE | 2017-07-09 19:09 | CP.PCM.PN ---
Subjective - Date & Time of Evaluation Date of Evaluation: 07/09/17 Time of Evaluation: 16:30 - Subjective Subjective: patient seen and examined Still complaining off cough Afebrile No chest pain On IV steroids for fibrosis On IV antibiotics Objective - Vital Signs/Intake and Output Vital Signs (last 24 hours): Temp Pulse Resp BP Pulse Ox 98.1 F 100 H 20 107/71 96 07/09/17 16:51 07/09/17 16:51 07/09/17 16:51 07/09/17 16:51 07/09/17 16:51 Intake and Output: 07/09/17 07/10/17 18:59 06:59 Intake Total 1280 Balance 1280 - Medications Medications: Current Medications Acetaminophen (Tylenol 325mg Tab) 650 mg PO Q6 PRN PRN Reason: Fever >100.4 F Albuterol/Ipratropium (Duoneb 3 Mg/0.5 Mg (3 Ml) Ud) 3 ml INH RQ4 [facility] Last Admin: 07/09/17 16:17 Dose: 3 ml Brimonidine Tartrate (Alphagan 0.2% Opht) 1 ml OU TID [facility] Last Admin: 07/09/17 14:07 Dose: 1 drop Calcium/Vitamin D (Oyster Shell Calcium/Vitamin D 500 Mg-200 Iu) 1 tab PO BID [facility] Last Admin: 07/09/17 17:45 Dose: 1 tab Dorzolamide HCl (Trusopt) 1 ml OU TID [facility] Last Admin: 07/09/17 17:48 Dose: 1 drop Enoxaparin Sodium (Lovenox) 40 mg SC DAILY [facility] Last Admin: 07/09/17 09:15 Dose: 40 mg Azithromycin 500 mg/ Sodium (Chloride) 250 mls @ 167 mls/hr IVPB Q24H [facility] Last Admin: 07/08/17 22:55 Dose: 167 mls/hr Sodium Chloride (Sodium Chloride 0.9%) 1,000 mls @ 100 mls/hr IV .Q10H [facility] Last Admin: 07/09/17 14:06 Dose: Not Given Ceftriaxone Sodium 1 gm/ (Sodium Chloride) 100 mls @ 50 mls/30 min IVPB DAILY [facility] Last Admin: 07/09/17 10:06 Dose: 50 mls/30 min Ketorolac Tromethamine (Toradol) 15 mg IVP Q6 PRN PRN Reason: Pain, moderate (4-7) Last Admin: 07/08/17 01:21 Dose: 15 mg Methylprednisolone (Solu-Medrol) 40 mg IVP Q6 [facility] Last Admin: 07/09/17 17:49 Dose: 40 mg Montelukast Sodium (Singulair) 10 mg PO HS [facility] Last Admin: 07/08/17 22:55 Dose: 10 mg Morphine Sulfate (Morphine) 1 mg IVP Q6 PRN PRN Reason: Pain, severe (8-10) Promethazine HCl/Codeine (Phenergan/Codeine Oral Syrup) 5 ml PO Q4 [facility] Last Admin: 07/09/17 17:00 Dose: 5 ml Ranitidine HCl (Zantac Soln 5ml) 150 mg PO BID PRN PRN Reason: Dyspepsia Fluticasone/Salmeterol (Advair Diskus 500/50) 1 puff INH RQ12 [facility] Last Admin: 07/09/17 09:00 Dose: Not Given Tiotropium [place] (Spiriva) 18 mcg INH RQ24 [facility] - Labs Labs: 07/09/17 08:24 07/09/17 08:24 PT 15.4 SECONDS (9.7-12.2) H 07/07/17 20:42 INR 1.4 07/07/17 20:42 APTT 36 SECONDS (21-34) H 07/07/17 20:42 - Head Exam Head Exam: ATRAUMATIC, NORMOCEPHALIC - Eye Exam Eye Exam: Normal appearance - ENT Exam ENT Exam: Mucous Membranes Moist - Respiratory Exam Respiratory Exam: Rales - Cardiovascular Exam Cardiovascular Exam: REGULAR RHYTHM - GI/Abdominal Exam GI & Abdominal Exam: Soft, Normal Bowel Sounds Assessment and Plan (1) Pulmonary fibrosis Assessment & Plan: increase IV steroids Continue Phenergan With Codeine On IV antibiotics Status: Acute
[2017-07-09] MEDS: Azithromycin 500 MG in Sodium Chloride 0.9% 250 ML IVPB SCH (21:53)
[2017-07-10] MEDS: Albuterol-Ipratrop 3 mg / 0.5 (3 ml) UD INH SCH ×7 (00:07→23:44)
[2017-07-10] MEDS: Promethazine/Cod 6.25mg-10mg/5ml Syr UD PO SCH ×6 (00:23→19:39)
[2017-07-10] MEDS: Sodium Chloride 0.9% 1,000 ML IV SCH ×2 (01:00→19:11)
[2017-07-10] MEDS: Fluticasone-Salmeterol 500-50mcg Diskus INH SCH (07:31)
[2017-07-10] MEDS: Tiotropium 18 mcg Cap For Inhalation INH SCH (07:32)
[2017-07-10] MEDS: Enoxaparin 40 mg Syringe SC SCH (09:17)
[2017-07-10] MEDS: Calcium-Vit D 500 mg-200 Units Tab UD PO SCH ×2 (09:19→17:18)
[2017-07-10] MEDS: Brimonidine 0.2% Opth Sol (5ml) OU SCH ×3 (11:23→17:19)
[2017-07-10] MEDS: Dorzolamide 2% Opht Sol 10ml OU SCH ×3 (11:23→17:19)
[2017-07-10 11:59] LABS: BASO % 0.1 % (0.0-2.0); LYMPH # 0.8 K/uL (1.0-4.3); LYMPH % 7.3 % (20.0-40.0); MEAN CELL VOLUME 86.3 fL (81.0-99.0); MEAN CORPUSCULAR HEMOGLOBIN 28.7 pg (27.0-31.0); MEAN CORPUSCULAR HGB CONC 33.3 g/dL (33.0-37.0); MEAN PLATELET VOLUME 9.1 fL (7.2-11.7); MONO # 0.5 K/uL (0.0-0.8); MONO % 4.3 % (0.0-10.0); NEUT # 10.2 K/uL (1.8-7.0); NEUT % 88.3 % (50.0-75.0); NRBC % 0.1 % (0.0-2.0); PLATELET COUNT 217 K/uL (130-400); RBC 3.48 Mil/uL (3.80-5.20); RED CELL DISTRIBUTION WIDTH 14.5 % (11.5-14.5); WHITE BLOOD COUNT 11.6 K/uL (4.8-10.8)
[2017-07-10 12:21] LABS: ALB/GLOB RATIO 0.9 (1.0-2.1); ALBUMIN 2.7 g/dL (3.5-5.0); ALT/SGPT 36 U/L (9-52); AST/SGOT 45 U/L (14-36); BLOOD UREA NITROGEN 17 mg/dL (7-17); CALCIUM 7.4 mg/dl (8.6-10.4); GFR AFRICAN-AMERICAN > 60; GFR NON-AFRICAN AMERICAN > 60
--- NOTE | 2017-07-10 12:49 | CARD ---
APPROVED REPORT EKG Measurement Heart [id number] <Conclusion> Sinus tachycardia Possible Left atrial enlargement Borderline ECG
[2017-07-10 12:50] LABS: BANDS 7 % (0-2); LYMPHOCYTE 5 % (20-40); METAMYELOCYTE 2 % (0-0); MONOCYTE 6 % (0-10); MYELOCYTE 2 % (0-0); NEUTROPHIL 78 % (50-75); PLATELET ESTIMATE NORMAL (NORMAL); TOTAL CELLS COUNTED 100
[2017-07-10 12:51] LABS: HYPOCHROMIC SLIGHT
--- NOTE | 2017-07-10 14:03 | CP.PCM.PN ---
Subjective - Date & Time of Evaluation Date of Evaluation: 07/10/17 Time of Evaluation: 10:30 - Subjective Subjective: Patient seen and examined at the bedside. Patient is still complaining about the cough she has. States that when she coughs she gets right sided abdominal pain. She denies any chest pain, nausea or vomiting. She is tolerating the antibiotics and steroids. Assessment/Plan Pulmonary Fibrosis -afebrile -Continue IV steroids 80 mg -continue phenergan -continue duoneb -continue spiriva Pneumonia -CT showed probable multifocal pneumonia superimposed on extensive fibrosis -Discontinue ceftriaxone and start Zosyn -duoneb -afebrile -sputum culture pending Objective - Vital Signs/Intake and Output Vital Signs (last 24 hours): Temp Pulse Resp BP Pulse Ox 98.2 F 110 H 20 119/66 95 07/10/17 07:35 07/10/17 07:35 07/10/17 07:35 07/10/17 07:35 07/10/17 07:35 Intake and Output: 07/10/17 07/10/17 06:59 18:59 Intake Total 1280 Balance 1280 - Medications Medications: Current Medications Acetaminophen (Tylenol 325mg Tab) 650 mg PO Q6 PRN PRN Reason: Fever >100.4 F Albuterol/Ipratropium (Duoneb 3 Mg/0.5 Mg (3 Ml) Ud) 3 ml INH RQ4 [facility] Last Admin: 07/10/17 07:32 Dose: 3 ml Brimonidine Tartrate (Alphagan 0.2% Opht) 1 ml OU TID [facility] Last Admin: 07/10/17 13:38 Dose: 1 drop Calcium/Vitamin D (Oyster Shell Calcium/Vitamin D 500 Mg-200 Iu) 1 tab PO BID [facility] Last Admin: 07/10/17 09:19 Dose: 1 tab Dorzolamide HCl (Trusopt) 1 ml OU TID [facility] Last Admin: 07/10/17 13:38 Dose: 1 drop Enoxaparin Sodium (Lovenox) 40 mg SC DAILY [facility] Last Admin: 07/10/17 09:17 Dose: 40 mg Famotidine (Pepcid) 20 mg PO BID PRN PRN Reason: Dyspepsia Azithromycin 500 mg/ Sodium (Chloride) 250 mls @ 167 mls/hr IVPB Q24H [facility] Last Admin: 07/09/17 21:53 Dose: 167 mls/hr Sodium Chloride (Sodium Chloride 0.9%) 1,000 mls @ 100 mls/hr IV .Q10H [facility] Last Admin: 07/10/17 01:00 Dose: 100 mls/hr Ceftriaxone Sodium 1 gm/ (Sodium Chloride) 100 mls @ 50 mls/30 min IVPB DAILY [facility] Last Admin: 07/10/17 09:17 Dose: 50 mls/30 min Methylprednisolone (Solu-Medrol) 80 mg IVP Q6H [facility] Last Admin: 07/10/17 13:38 Dose: 80 mg Morphine Sulfate (Morphine) 1 mg IVP Q6 PRN PRN Reason: Pain, severe (8-10) Promethazine HCl/Codeine (Phenergan/Codeine Oral Syrup) 5 ml PO Q4 [facility] Last Admin: 07/10/17 12:45 Dose: 5 ml Fluticasone/Salmeterol (Advair Diskus 500/50) 1 puff INH RQ12 [facility] Last Admin: 07/10/17 07:31 Dose: 1 puff Tiotropium [place] (Spiriva) 18 mcg INH RQ24 [facility] Last Admin: 07/10/17 07:32 Dose: Not Given - Labs Labs: 07/10/17 11:48 07/10/17 11:48 PT 15.4 SECONDS (9.7-12.2) H 07/07/17 20:42 INR 1.4 07/07/17 20:42 APTT 36 SECONDS (21-34) H 07/07/17 20:42 Assessment and Plan (1) Pulmonary fibrosis Status: Acute
--- NOTE | 2017-07-10 14:32 | CP.PCM.PN ---
Subjective - Date & Time of Evaluation Date of Evaluation: 07/10/17 Time of Evaluation: 08:00 - Subjective Subjective: DOING POORLY SWITCHED TO ZOSYN FROM ROCEPHIN VANCO 1 G GIVEN STAT POOR PROGNOSIS Objective - Vital Signs/Intake and Output Vital Signs (last 24 hours): Temp Pulse Resp BP Pulse Ox 98.2 F 110 H 20 119/66 95 07/10/17 07:35 07/10/17 07:35 07/10/17 07:35 07/10/17 07:35 07/10/17 07:35 Intake and Output: 07/10/17 07/10/17 06:59 18:59 Intake Total 1280 Balance 1280 - Medications Medications: Current Medications Acetaminophen (Tylenol 325mg Tab) 650 mg PO Q6 PRN PRN Reason: Fever >100.4 F Albuterol/Ipratropium (Duoneb 3 Mg/0.5 Mg (3 Ml) Ud) 3 ml INH RQ4 [facility] Last Admin: 07/10/17 07:32 Dose: 3 ml Brimonidine Tartrate (Alphagan 0.2% Opht) 1 ml OU TID [facility] Last Admin: 07/10/17 13:38 Dose: 1 drop Calcium/Vitamin D (Oyster Shell Calcium/Vitamin D 500 Mg-200 Iu) 1 tab PO BID [facility] Last Admin: 07/10/17 09:19 Dose: 1 tab Dorzolamide HCl (Trusopt) 1 ml OU TID [facility] Last Admin: 07/10/17 13:38 Dose: 1 drop Enoxaparin Sodium (Lovenox) 40 mg SC DAILY [facility] Last Admin: 07/10/17 09:17 Dose: 40 mg Famotidine (Pepcid) 20 mg PO BID PRN PRN Reason: Dyspepsia Azithromycin 500 mg/ Sodium (Chloride) 250 mls @ 167 mls/hr IVPB Q24H [facility] Last Admin: 07/09/17 21:53 Dose: 167 mls/hr Sodium Chloride (Sodium Chloride 0.9%) 1,000 mls @ 100 mls/hr IV .Q10H [facility] Last Admin: 07/10/17 01:00 Dose: 100 mls/hr Piperacillin Sod/Tazobactam (Sod 3.375 gm/ Sodium Chloride) 100 mls @ 200 mls/ hr IVPB Q8H [facility] Methylprednisolone (Solu-Medrol) 80 mg IVP Q6H [facility] Last Admin: 07/10/17 13:38 Dose: 80 mg Morphine Sulfate (Morphine) 1 mg IVP Q6 PRN PRN Reason: Pain, severe (8-10) Promethazine HCl/Codeine (Phenergan/Codeine Oral Syrup) 5 ml PO Q4 [facility] Last Admin: 07/10/17 12:45 Dose: 5 ml Tiotropium [place] (Spiriva) 18 mcg INH RQ24 [facility] Last Admin: 07/10/17 07:32 Dose: Not Given - Labs Labs: 07/10/17 11:48 07/10/17 11:48 PT 15.4 SECONDS (9.7-12.2) H 07/07/17 20:42 INR 1.4 07/07/17 20:42 APTT 36 SECONDS (21-34) H 07/07/17 20:42 - Constitutional Appears: Non-toxic, Confused, Cachectic, Chronically Ill - Head Exam Head Exam: NORMOCEPHALIC - Eye Exam Eye Exam: PERRL. absent: Scleral icterus - ENT Exam ENT Exam: Mucous Membranes Dry - Neck Exam Neck Exam: absent: Lymphadenopathy - Respiratory Exam Respiratory Exam: Decreased Breath Sounds, Prolonged Expiratory Phase, Rhonchi - Cardiovascular Exam Cardiovascular Exam: REGULAR RHYTHM - GI/Abdominal Exam GI & Abdominal Exam: Soft - Rectal Exam Rectal Exam: Deferred - Exam Exam: NORMAL INSPECTION - Extremities Exam Extremities Exam: absent: Pedal Edema, Tenderness - Back Exam Back Exam: absent: CVA tenderness (L), CVA tenderness (R) - Neurological Exam Neurological Exam: Altered Neuro motor strength exam: Left Upper Extremity: 3, Right Upper Extremity: 3, Left Lower Extremity: 3, Right Lower Extremity: 3 - Psychiatric Exam Psychiatric exam: Depressed - Skin Skin Exam: Dry Assessment and Plan (1) Pneumonia Status: Acute (2) Bronchitis Status: Acute (3) Cough Status: Acute (4) Dyspnea Status: Acute (5) Hypoxia Status: Acute (6) Leukocytosis Status: Acute (7) Pulmonary fibrosis Status: Acute - Assessment and Plan (Free Text) Assessment: POOR PROGNOSIS ADD VANCO ONE DOSE AWAIT CULTURES
[2017-07-10] MEDS ORDERED: Vancomycin 1 GM in Sodium Chloride 0.9% 200 ML IVPB ONE (14:33)
[2017-07-10] MEDS: Piperacillin/Tazobact 3.375 GM in Sodium Chloride 100 ML IVPB SCH ×2 (14:40→23:06)
[2017-07-10] MEDS: Azithromycin 500 MG in Sodium Chloride 0.9% 250 ML IVPB SCH (21:03)
[2017-07-11] MEDS: Promethazine/Cod 6.25mg-10mg/5ml Syr UD PO SCH ×6 (00:10→19:14)
[2017-07-11] MEDS: Albuterol-Ipratrop 3 mg / 0.5 (3 ml) UD INH SCH ×6 (03:10→23:55)
[2017-07-11] MEDS: Sodium Chloride 0.9% 1,000 ML IV SCH ×4 (06:01→19:14)
[2017-07-11] MEDS: Piperacillin/Tazobact 3.375 GM in Sodium Chloride 100 ML IVPB SCH ×2 (06:06→13:49)
[2017-07-11] MEDS: Tiotropium 18 mcg Cap For Inhalation INH SCH (07:34)
[2017-07-11 08:08] LABS: HEMOGLOBIN 10.7 g/dL (11.0-16.0); LYMPH # 1.3 K/uL (1.0-4.3); LYMPH % 7.9 % (20.0-40.0); MEAN CELL VOLUME 86.5 fL (81.0-99.0); MEAN CORPUSCULAR HEMOGLOBIN 28.1 pg (27.0-31.0); MEAN CORPUSCULAR HGB CONC 32.6 g/dL (33.0-37.0); MEAN PLATELET VOLUME 8.8 fL (7.2-11.7); MONO % 5.6 % (0.0-10.0); NEUT # 14.7 K/uL (1.8-7.0); NEUT % 86.5 % (50.0-75.0); NRBC % 0.2 % (0.0-2.0); PLATELET COUNT 216 K/uL (130-400); RBC 3.82 Mil/uL (3.80-5.20); RED CELL DISTRIBUTION WIDTH 14.7 % (11.5-14.5)
[2017-07-11 08:20] LABS: ALB/GLOB RATIO 0.9 (1.0-2.1); ALBUMIN 2.9 g/dL (3.5-5.0); ALT/SGPT 40 U/L (9-52); AST/SGOT 47 U/L (14-36); BLOOD UREA NITROGEN 12 mg/dL (7-17); CALCIUM 7.1 mg/dl (8.6-10.4); GFR AFRICAN-AMERICAN > 60; GFR NON-AFRICAN AMERICAN > 60
[2017-07-11 10:01] LABS: ANISOCYTOSIS SLIGHT; LYMPHOCYTE 9 % (20-40); MONOCYTE 4 % (0-10); NEUTROPHIL 87 % (50-75); PLATELET ESTIMATE NORMAL (NORMAL); POIKILOCYTOSIS SLIGHT; TOTAL CELLS COUNTED 100
[2017-07-11 10:02] LABS: HYPOCHROMIC SLIGHT
[2017-07-11] MEDS: Enoxaparin 40 mg Syringe SC SCH (10:06)
[2017-07-11] MEDS: Calcium-Vit D 500 mg-200 Units Tab UD PO SCH ×2 (10:07→17:04)
[2017-07-11] MEDS: Brimonidine 0.2% Opth Sol (5ml) OU SCH ×3 (10:07→17:05)
[2017-07-11] MEDS: Dorzolamide 2% Opht Sol 10ml OU SCH ×3 (10:08→17:05)
[2017-07-11] MEDS ORDERED: Albuterol 0.042% Inhal Sol (1.25 mg/3 mL) UD INH ONE (10:30)
[2017-07-11 10:51] LABS: ARTERIAL BLOOD GAS HCO3 27.5 mmol/L (21-28); ARTERIAL BLOOD GAS O2 SAT 97.2 % (95-98); ARTERIAL BLOOD GAS PCO2 50 mm/Hg (35-45); ARTERIAL BLOOD GAS PH 7.38 (7.35-7.45); ARTERIAL BLOOD GAS PO2 84 mm/Hg (80-100); ARTERIAL BLOOD GAS TCO2 31.1 mmol/L (22-28)
--- NOTE | 2017-07-11 12:40 | CT ---
CT chest without IV contrast Indication: Shortness of breath Technique: Contiguous axial images were obtained through the chest without intravenous contrast enhancement. Sagittal and coronal reconstructions were generated and reviewed. This CT exam was performed using 1 or more of the following dose reduction techniques: Automated exposure control, adjustment of the MAA and/or kV according to patient size, and/or use of iterative reconstruction technique. Radiation dose (DLP): 313.20 MGy-cm. Comparison: CT chest with contrast performed 08/17/15 Findings: Visualized portions of the inferior thyroid gland appear unremarkable. The unenhanced mediastinal and hilar vascular structures appear grossly unremarkable. Cardiomegaly. Prevascular/mediastinal adenopathy. Extensive fibrotic changes throughout bilateral lung ibrahim with extensive pulmonary scarring and bronchiectasis evident. Mosaic attenuation and or ground-glass opacities. Suspect small left pleural effusion and/or consolidation. Additionally suspected consolidation within the inferior aspect of the right upper lobe. No pneumothorax. Limited visualization of the noncontrast upper abdomen: Cholelithiasis. Mild degenerative changes. Kyphosis. T12 compression fracture deformity, chronic. Impression: Extensive fibrotic changes throughout the lung ibrahim. Superimposed consolidation is suspected. Correlate clinically. Patchy ground-glass pulmonary opacities may reflect small airways disease or inflammatory process. Suspect small left pleural effusion. Cardiomegaly. Prevascular/mediastinal adenopathy. Cholelithiasis.
--- NOTE | 2017-07-11 12:50 | CP.PCM.CON ---
History of Present Illness - History of Present Illness History of Present Illness: Palliative consult requested by Farshad BEGUM for goals of care discussion Patient is a 87 yo ladyadmitted from home with complaints of right sided chest pain, radiating to back. patient has lasting for 3 days and is worse with cough. Patient reports losing appetite and inability to sleep due to pain. CT chest significant for extensive fibrosis and superimposed pneumonia. Zithromax IV and Zosyn on board. Pain controled by Morphine 1 mg IV PRN. IV hydration.O2 via Nonrebrither mask. PMH: Pulmonary fibrosis, CHF Soc. Hx: single, lives with son, retired Fam. Hx; father with CHF Review of Systems - Review of Systems All systems: reviewed and no additional remarkable complaints except Review of Systems: ROS unobtainable from the patient due to acute respiratory distress. Per nursing , patient has been moaning but denies pain, afebrile. Past Patient History - Infectious Disease Hx of Infectious Diseases: None - Tetanus Immunizations Tetanus Immunization: Unknown - Past Medical History & Family History Past Medical History?: Yes - Past Social History Smoking Status: Never Smoked - CARDIAC Hx Congestive Heart Failure: Yes - PULMONARY Hx Respiratory Disorders: Yes (Pulmonary Fibrosis) Other/Comment: Pt states she has pulmonary fibrosis - NEUROLOGICAL Hx Neurological Disorder: No - HEENT Hx HEENT Problems: Yes Hx Blind: Yes (right eye blind) Hx Cataracts: Yes (had cataract eye surgery bilateral) Hx Glaucoma: Yes (left eye) - RENAL Hx Chronic Kidney Disease: No - ENDOCRINE/METABOLIC Hx Endocrine Disorders: No - HEMATOLOGICAL/ONCOLOGICAL Hx Blood Disorders: No - INTEGUMENTARY Hx Dermatological Problems: No - MUSCULOSKELETAL/RHEUMATOLOGICAL Hx Musculoskeletal Disorders: Yes Hx Falls: No Hx Fractures: Yes (Right foot 1999) - GASTROINTESTINAL Hx Gastrointestinal Disorders: Yes Hx Diarrhea: Yes (x3 days) Other/Comment: Poor appetite - GENITOURINARY/GYNECOLOGICAL Hx Genitourinary Disorders: Yes Hx Incontinence: Yes (had prior surgery for urinary incontinence) - PSYCHIATRIC Hx Substance Use: No - SURGICAL HISTORY Hx Surgeries: Yes (urinary incontinence sx,) Hx Cataract Extraction: Yes (B/L) Hx Herniorrhaphy: Yes Hx Musculoskeletal Surgery: Yes (Right foot) Other/Comment: abdominal hernia repair - ANESTHESIA Hx Anesthesia: Yes Hx Anesthesia Reactions: No Hx Malignant Hyperthermia: No Meds Allergies/Adverse Reactions: Allergies Allergy/AdvReac Type Severity Reaction Status Date / Time No Known Allergies Allergy Verified 07/07/17 19:30 - Medications Medications: Current Medications Acetaminophen (Tylenol 325mg Tab) 650 mg PO Q6 PRN PRN Reason: Fever >100.4 F Albuterol/Ipratropium (Duoneb 3 Mg/0.5 Mg (3 Ml) Ud) 3 ml INH RQ4 [facility] Last Admin: 07/11/17 07:32 Dose: 3 ml Brimonidine Tartrate (Alphagan 0.2% Opht) 1 ml OU TID [facility] Last Admin: 07/11/17 10:07 Dose: 1 drop Calcium/Vitamin D (Oyster Shell Calcium/Vitamin D 500 Mg-200 Iu) 1 tab PO BID [facility] Last Admin: 07/11/17 10:07 Dose: 1 tab Dorzolamide HCl (Trusopt) 1 ml OU TID [facility] Last Admin: 07/11/17 10:08 Dose: 1 drop Enoxaparin Sodium (Lovenox) 40 mg SC DAILY [facility] Last Admin: 07/11/17 10:06 Dose: 40 mg Famotidine (Pepcid) 20 mg PO BID PRN PRN Reason: Dyspepsia Azithromycin 500 mg/ Sodium (Chloride) 250 mls @ 167 mls/hr IVPB Q24H [facility] Last Admin: 07/10/17 21:03 Dose: 167 mls/hr Sodium Chloride (Sodium Chloride 0.9%) 1,000 mls @ 100 mls/hr IV .Q10H [facility] Last Admin: 07/11/17 06:02 Dose: 100 mls/hr Piperacillin Sod/Tazobactam (Sod 3.375 gm/ Sodium Chloride) 100 mls @ 200 mls/ hr IVPB Q8H [facility] Last Admin: 07/11/17 06:06 Dose: 200 mls/hr Methylprednisolone (Solu-Medrol) 80 mg IVP Q6H [facility] Last Admin: 07/11/17 06:09 Dose: 80 mg Morphine Sulfate (Morphine) 1 mg IVP Q6 PRN PRN Reason: Pain, severe (8-10) Promethazine HCl/Codeine (Phenergan/Codeine Oral Syrup) 5 ml PO Q4 [facility] Last Admin: 07/11/17 12:14 Dose: 5 ml Tiotropium [place] (Spiriva) 18 mcg INH RQ24 [facility] Last Admin: 07/11/17 07:34 Dose: Not Given Physical Exam - Constitutional Appears: In Acute Distress, Chronically Ill - Head Exam Head Exam: ATRAUMATIC, NORMAL INSPECTION, NORMOCEPHALIC - Eye Exam Eye Exam: EOMI, Normal appearance, PERRL Pupil Exam: NORMAL ACCOMODATION, PERRL - ENT Exam ENT Exam: Mucous Membranes Dry - Neck Exam Neck exam: Positive for: Normal Inspection - Respiratory Exam Respiratory Exam: Accessory Muscle Use, Decreased Breath Sounds, Respiratory Distress - Cardiovascular Exam Cardiovascular Exam: Tachycardia, REGULAR RHYTHM - GI/Abdominal Exam GI & Abdominal Exam: Normal Bowel Sounds, Soft - Rectal Exam Rectal Exam: Deferred - Extremities Exam Extremities exam: Positive for: normal inspection Additional comments: right hand swollen post hep lack - Back Exam Back exam: NORMAL INSPECTION - Neurological Exam Neurological exam: Alert, Oriented x3 - Psychiatric Exam Psychiatric exam: Anxious - Skin Skin Exam: Pallor Results - Vital Signs Recent Vital Signs: Last Vital Signs Temp 97.3 F L 07/11/17 07:22 Pulse 114 H 07/11/17 07:22 Resp 18 07/11/17 07:22 BP 147/75 07/11/17 07:22 Pulse Ox 93 L 07/11/17 07:22 - Labs Result Diagrams: 07/11/17 08:00 07/11/17 08:00 Labs: Laboratory Results - last 24 hr 07/10/17 07/11/17 07/11/17 11:48 08:00 08:00 WBC 17.0 H RBC 3.82 Hgb 10.7 L Hct 33.0 L MCV 86.5 MCH 28.1 MCHC 32.6 L RDW 14.7 H Plt Count 216 MPV 8.8 Neut % (Auto) 86.5 H Lymph % (Auto) 7.9 L [place] % (Auto) 5.6 Eos % (Auto) 0.0 Baso % (Auto) 0.0 Neut # (Auto) 14.7 H Lymph # (Auto) 1.3 [place] # (Auto) 1.0 H Eos # (Auto) 0.0 Baso # (Auto) 0.0 Neutrophils % (Manual) 78 H 87 H Band Neutrophils % 7 H Lymphocytes % (Manual) 5 L 9 L Monocytes % (Manual) 6 4 Metamyelocytes % 2 H Myelocytes % 2 H Platelet Estimate Normal Normal Hypochromasia (manual) Slight Slight Poikilocytosis (manual Slight Anisocytosis (manual) Slight Puncture Site pCO2 pO2 HCO3 ABG pH ABG Total CO2 ABG O2 Saturation ABG Base Excess Kavin Test ABG Potassium A-a O2 Difference Respiratory Index Glucose Lactate FiO2 Crit Value Called To Crit Value Called By Crit Value Read Back Blood Gas Notified Time Sodium 143 Potassium 3.3 L Chloride 104 Carbon Dioxide 31 H Anion Gap 12 BUN 12 Creatinine 0.5 L Est GFR ( Amer) > 60 Est GFR (Non-Af Amer) > 60 Random Glucose 129 H Calcium 7.1 L Total Bilirubin 0.4 AST 47 H ALT 40 Alkaline Phosphatase 91 Total Protein 6.2 L Albumin 2.9 L Globulin 3.3 Albumin/Globulin Ratio 0.9 L Arterial Blood Potassium 07/11/17 10:40 WBC RBC Hgb Hct MCV MCH MCHC RDW Plt Count MPV Neut % (Auto) Lymph % (Auto) [place] % (Auto) Eos % (Auto) Baso % (Auto) Neut # (Auto) Lymph # (Auto) [place] # (Auto) Eos # (Auto) Baso # (Auto) Neutrophils % (Manual) Band Neutrophils % Lymphocytes % (Manual) Monocytes % (Manual) Metamyelocytes % Myelocytes % Platelet Estimate Hypochromasia (manual) Poikilocytosis (manual Anisocytosis (manual) Puncture Site Lb pCO2 50 H pO2 84 HCO3 27.5 ABG pH 7.38 ABG Total CO2 31.1 H ABG O2 Saturation 97.2 ABG Base Excess 3.4 H Kavin Test Na ABG Potassium 2.6 L A-a O2 Difference 567.0 Respiratory Index 6.8 Glucose 153 H Lactate 2.0 FiO2 100.0 Crit Value Called To Dr cagle Crit Value Called By [facility] Crit Value Read Back Y Blood Gas Notified Time 1045 Sodium 145.0 Potassium Chloride 111.0 H Carbon Dioxide Anion Gap BUN Creatinine Est GFR ( Amer) Est GFR (Non-Af Amer) Random Glucose Calcium Total Bilirubin AST ALT Alkaline Phosphatase Total Protein Albumin Globulin Albumin/Globulin Ratio Arterial Blood Potassium 2.6 L Assessment & Plan - Assessment and Plan (Free Text) Assessment: palliative consult No advance directive on chart, PPS 10 % I reviewed medical records, all diagnostic studies, examined patient in the bed and discussed her condition with nursing. Patient is alert, with affect that is anxious and O2 on via non rebrither mask. Unable to talk due to shortness of breath. O2 Sat 93 %.Breathing is fast, shallow with JVD. Nursing reports dry cough improved with Phenergan/Codein sirup.Oral mucosa dry. Skin pale. hb dropped to 10.0 from 12.0. Abdomen flat and soft. Per nursing, patient has poor PO intake due to shortness of breath. Patient is incontinent of urine, uses diappers. Right hand swollen, post H.L infiltrate. patient is bed ridden due to SOB. BP 132/72, HR 99. Family meeting scheduled for today with patient's son Mr. Moeller. he will call me upon his arrival. Impression * Chronically ill lady with acute respiratory distress due to worsening Fibrosis * Cough * Anemia * At risk for malnutrition/ dehydration * At risk for pressure sore due to incontinent and prolonged bed rest * lack of Advance Directive Plan * Continue o2 supplement, elevate HOB at 45 degrees * Continue Phenergan sirup * Would monitor Hb for further * Promote skin integrity, assist patient in repositioning Q 2 hr * Code status will be discussed upon son's arrival.
[2017-07-11] MEDS ORDERED: Potassium Chloride 20 mEq/15 ml LIQ UD PO STA (13:56)
--- NOTE | 2017-07-11 15:33 | CP.PCM.PN ---
Subjective - Date & Time of Evaluation Date of Evaluation: 07/11/17 Time of Evaluation: 11:00 - Subjective Subjective: Patient was seen and examined at the bedside. Patients 02 Saturation dropped to low 80's and was switched to a non-rebreather. Patient is still coughing. She denies any chest pain or palpitations. Assessment/plan Pulmonary Fibrosis -afebrile -Continue IV steroids 80 mg -continue phenergan -continue duoneb -continue spiriva Pneumonia -ct scan repeated: extensive fibrotic changes throughout lung ibrahim, superimposed consolidation suspected, patchy ground glass pulmonary opacities, suspected small left pleural effusion -repeat ABG? -switch to tele -switched to zosyn/azithromycin -duoneb -afebrile -cultures pending Objective - Vital Signs/Intake and Output Vital Signs (last 24 hours): Temp Pulse Resp BP Pulse Ox 97.3 F L 114 H 18 147/75 93 L 07/11/17 07:22 07/11/17 07:22 07/11/17 07:22 07/11/17 07:22 07/11/17 07:22 Intake and Output: 07/11/17 07/11/17 06:59 18:59 Intake Total 1200 Balance 1200 - Medications Medications: Current Medications Acetaminophen (Tylenol 325mg Tab) 650 mg PO Q6 PRN PRN Reason: Fever >100.4 F Albuterol/Ipratropium (Duoneb 3 Mg/0.5 Mg (3 Ml) Ud) 3 ml INH RQ4 [facility] Last Admin: 07/11/17 13:32 Dose: 3 ml Brimonidine Tartrate (Alphagan 0.2% Opht) 1 ml OU TID [facility] Last Admin: 07/11/17 13:07 Dose: 1 drop Calcium/Vitamin D (Oyster Shell Calcium/Vitamin D 500 Mg-200 Iu) 1 tab PO BID [facility] Last Admin: 07/11/17 10:07 Dose: 1 tab Dorzolamide HCl (Trusopt) 1 ml OU TID [facility] Last Admin: 07/11/17 13:02 Dose: 1 drop Enoxaparin Sodium (Lovenox) 40 mg SC DAILY [facility] Last Admin: 07/11/17 10:06 Dose: 40 mg Famotidine (Pepcid) 20 mg PO BID PRN PRN Reason: Dyspepsia Azithromycin 500 mg/ Sodium (Chloride) 250 mls @ 167 mls/hr IVPB Q24H [facility] Last Admin: 07/10/17 21:03 Dose: 167 mls/hr Sodium Chloride (Sodium Chloride 0.9%) 1,000 mls @ 100 mls/hr IV .Q10H [facility] Last Admin: 07/11/17 06:02 Dose: 100 mls/hr Piperacillin Sod/Tazobactam (Sod 3.375 gm/ Sodium Chloride) 100 mls @ 200 mls/ hr IVPB Q8H [facility] Last Admin: 07/11/17 13:49 Dose: 200 mls/hr Methylprednisolone (Solu-Medrol) 80 mg IVP Q6H [facility] Last Admin: 07/11/17 13:03 Dose: 80 mg Morphine Sulfate (Morphine) 1 mg IVP Q6 PRN PRN Reason: Pain, severe (8-10) Promethazine HCl/Codeine (Phenergan/Codeine Oral Syrup) 5 ml PO Q4 [facility] Last Admin: 07/11/17 12:14 Dose: 5 ml Tiotropium [place] (Spiriva) 18 mcg INH RQ24 [facility] Last Admin: 07/11/17 07:34 Dose: Not Given - Labs Labs: 07/11/17 08:00 07/11/17 08:00 PT 15.4 SECONDS (9.7-12.2) H 07/07/17 20:42 INR 1.4 07/07/17 20:42 APTT 36 SECONDS (21-34) H 07/07/17 20:42 Assessment and Plan (1) Pulmonary fibrosis Status: Acute
[2017-07-11] MEDS: Azithromycin 500 MG in Sodium Chloride 0.9% 250 ML IVPB SCH (21:41)
--- NOTE | 2017-07-12 03:48 | PCM.RRT ---
TELEMARKETING REPRESENTATIVE Nurses Assessment - Situation Date: 07/12/17 New IV Insertion Tolerance: Good - Head Head Exam: NORMAL INSPECTION - Eyes Eye Exam: Normal appearance - Respiratory Exam Respiratory Exam: Accessory Muscle Use, Rales, Rhonchi, Wheezes, Respiratory Distress. absent: Clear to Ausculation Bilateral - Cardiovascular Exam Cardiovascular Exam: Tachycardia, +S1, +S2 - Neurological Exam Neurological Exam: Awake - Extremities Exam Extremities Exam: Normal Inspection Plan - Assessment of Findings&Treatment Plan TELEMARKETING REPRESENTATIVE was called for shortness of breath and O2 saturation of 82%. Patient admitted with pulmonary fibrosis and pneumonia. Patient complains of shortness of breath that worsens at night. Patient denies pain. Vitals were taken: BP 163/ 82, HR 125, Temp 98F, O2 sat 81%. Nonrebreather placed. Duoneb ordered stat. Vitals were rechecked: BP 153/81, HR 116, T 98F, O2 sat 85%. Scheduled duoneb given. Vitals rechecked: BP 145/78, HR 121, O2 sat 84%. Patient reports feeling slightly better. BiPAP ordered and placed. O2 sat increased to 96%
[2017-07-12] MEDS: Albuterol-Ipratrop 3 mg / 0.5 (3 ml) UD INH SCH ×5 (03:51→19:58)
[2017-07-12] MEDS ORDERED: Albuterol-Ipratrop 3 mg / 0.5 (3 ml) UD INH STA (03:51)
[2017-07-12] MEDS: Promethazine/Cod 6.25mg-10mg/5ml Syr UD PO SCH ×5 (04:13→19:43)
[2017-07-12] MEDS: Piperacillin/Tazobact 3.375 GM in Sodium Chloride 100 ML IVPB SCH ×4 (04:16→22:20)
[2017-07-12 08:30] LABS: EOS % 0.1 % (0.0-4.0); HEMOGLOBIN 10.4 g/dL (11.0-16.0); LYMPH # 0.9 K/uL (1.0-4.3); LYMPH % 3.6 % (20.0-40.0); MEAN CELL VOLUME 86.3 fL (81.0-99.0); MEAN CORPUSCULAR HEMOGLOBIN 27.8 pg (27.0-31.0); MEAN CORPUSCULAR HGB CONC 32.3 g/dL (33.0-37.0); MEAN PLATELET VOLUME 8.8 fL (7.2-11.7); MONO # 0.7 K/uL (0.0-0.8); MONO % 2.9 % (0.0-10.0); NEUT # 22.9 K/uL (1.8-7.0); NEUT % 93.4 % (50.0-75.0); NRBC % 0.1 % (0.0-2.0); PLATELET COUNT 215 K/uL (130-400); RBC 3.73 Mil/uL (3.80-5.20); RED CELL DISTRIBUTION WIDTH 14.8 % (11.5-14.5); WHITE BLOOD COUNT 24.5 K/uL (4.8-10.8)
[2017-07-12 09:02] LABS: LYMPHOCYTE 3 % (20-40); MONOCYTE 11 % (0-10); NEUTROPHIL 86 % (50-75); TOTAL CELLS COUNTED 100
[2017-07-12 09:03] LABS: PLATELET ESTIMATE NORMAL (NORMAL)
[2017-07-12 09:04] LABS: ALB/GLOB RATIO 0.9 (1.0-2.1); ALBUMIN 2.8 g/dL (3.5-5.0); ALT/SGPT 30 U/L (9-52); AST/SGOT 37 U/L (14-36); BLOOD UREA NITROGEN 9 mg/dL (7-17); CALCIUM 6.9 mg/dl (8.6-10.4); GFR AFRICAN-AMERICAN > 60; GFR NON-AFRICAN AMERICAN > 60
[2017-07-12] MEDS: Calcium-Vit D 500 mg-200 Units Tab UD PO SCH ×2 (09:48→17:49)
[2017-07-12] MEDS: Enoxaparin 40 mg Syringe SC SCH (09:48)
[2017-07-12] MEDS: Dorzolamide 2% Opht Sol 10ml OU SCH ×3 (09:48→17:40)
[2017-07-12] MEDS: Brimonidine 0.2% Opth Sol (5ml) OU SCH ×3 (09:49→17:40)
[2017-07-12] MEDS ORDERED: Potassium Chloride 20 mEq ER Tab PO ONE (10:45)
--- NOTE | 2017-07-12 12:25 | CP.PCM.PN ---
Subjective - Date & Time of Evaluation Date of Evaluation: 07/12/17 Time of Evaluation: 11:00 - Subjective Subjective: Does not offer complaints, on BiPap. Appears anxious Objective - Vital Signs/Intake and Output Vital Signs (last 24 hours): Temp Pulse Resp BP Pulse Ox 97.7 F 123 H 20 143/87 95 07/11/17 15:00 07/12/17 04:09 07/11/17 15:00 07/11/17 15:00 07/11/17 15:00 Intake and Output: 07/12/17 07/12/17 06:59 18:59 Intake Total 1200 Balance 1200 - Medications Medications: Current Medications Acetaminophen (Tylenol 325mg Tab) 650 mg PO Q6 PRN PRN Reason: Fever >100.4 F Albuterol/Ipratropium (Duoneb 3 Mg/0.5 Mg (3 Ml) Ud) 3 ml INH RQ4 [facility] Last Admin: 07/12/17 03:51 Dose: 3 ml Brimonidine Tartrate (Alphagan 0.2% Opht) 1 ml OU TID [facility] Last Admin: 07/12/17 09:49 Dose: 1 drop Calcium/Vitamin D (Oyster Shell Calcium/Vitamin D 500 Mg-200 Iu) 1 tab PO BID [facility] Last Admin: 07/12/17 09:48 Dose: 1 tab Dorzolamide HCl (Trusopt) 1 ml OU TID [facility] Last Admin: 07/12/17 09:48 Dose: 1 drop Enoxaparin Sodium (Lovenox) 40 mg SC DAILY [facility] Last Admin: 07/12/17 09:48 Dose: 40 mg Famotidine (Pepcid) 20 mg PO BID PRN PRN Reason: Dyspepsia Azithromycin 500 mg/ Sodium (Chloride) 250 mls @ 167 mls/hr IVPB Q24H [facility] Last Admin: 07/11/17 21:41 Dose: 167 mls/hr Piperacillin Sod/Tazobactam (Sod 3.375 gm/ Sodium Chloride) 100 mls @ 200 mls/ hr IVPB Q8H [facility] Last Admin: 07/12/17 07:39 Dose: 200 mls/hr Methylprednisolone (Solu-Medrol) 80 mg IVP Q6H [facility] Last Admin: 07/12/17 07:39 Dose: 80 mg Morphine Sulfate (Morphine) 1 mg IVP Q6 PRN PRN Reason: Pain, severe (8-10) Promethazine HCl/Codeine (Phenergan/Codeine Oral Syrup) 5 ml PO Q4 [facility] Last Admin: 07/12/17 11:10 Dose: 5 ml Tiotropium [place] (Spiriva) 18 mcg INH RQ24 [facility] Last Admin: 07/11/17 07:34 Dose: Not Given - Labs Labs: 07/12/17 08:22 07/12/17 08:22 PT 15.4 SECONDS (9.7-12.2) H 07/07/17 20:42 INR 1.4 07/07/17 20:42 APTT 36 SECONDS (21-34) H 07/07/17 20:42 - Constitutional Appears: In Acute Distress - Head Exam Head Exam: ATRAUMATIC, NORMAL INSPECTION, NORMOCEPHALIC - Eye Exam Eye Exam: EOMI, Normal appearance, PERRL Pupil Exam: NORMAL ACCOMODATION, PERRL - ENT Exam ENT Exam: Mucous Membranes Dry - Neck Exam Neck Exam: Normal Inspection - Respiratory Exam Respiratory Exam: Accessory Muscle Use, Decreased Breath Sounds, Respiratory Distress - Cardiovascular Exam Cardiovascular Exam: Tachycardia, REGULAR RHYTHM - GI/Abdominal Exam GI & Abdominal Exam: Diminished Bowel Sounds - Rectal Exam Rectal Exam: Deferred - Extremities Exam Extremities Exam: Pedal Edema - Back Exam Back Exam: NORMAL INSPECTION - Neurological Exam Neurological Exam: Alert Neuro motor strength exam: Left Upper Extremity: 2/1, Right Upper Extremity: 2/1 , Left Lower Extremity: 2/1, Right Lower Extremity: 2/1 - Psychiatric Exam Psychiatric exam: Anxious - Skin Skin Exam: Pallor Assessment and Plan - Assessment and Plan (Free Text) Assessment: Palliative progress note Patient seen and examined in bed, alert, on BiPap appearing very anxious and moaning. Skin pale. Breathing shallow, O2sat 93% on BiPap. BP 163/82, HR 123, RR 27, afebrile. WBC phan to 24.0. Zosyn and Zithromax IV continued. Family meeting attended by three sons and grandson. In long discussion , using On demand translation, I reviewed patient's clinical presentation in light of her diagnosis. Family stated full understanding. The older son, Mr. Moeller cried. The family was united in concern about quality of life and wanted patient 's comfort to be supported as much as possible. I reassured them that all prudent measures were in place. Code status discussed. POLST introdced. Family given Kazakh version. Family chose DNR/DNI. Doctor Tim is coming to discuss the prognosis with family. Impression * Acute respiratory distress * Anxiety * Anticipatory grieving among family members * Family advocates for quality of life and comfort measures, POLST signed Plan * o2 supplement * Reassure patient of help available * pastoral care for spiritual support * DNR/DNI
--- NOTE | 2017-07-12 17:45 | CP.PCM.PN ---
Subjective - Date & Time of Evaluation Date of Evaluation: 07/12/17 Time of Evaluation: 11:45 - Subjective Subjective: Patient was seen and examined at the bedside. She had a rapid response called today due to low O2 saturation (82%) and shortness of breath. She was given duonebs and placed on biPAP and stabilized to 96%. ? Patient is DNR/DNI. Assessment/Plan Pulmonary Fibrosis -afebrile -Continue IV steroids 80 mg -continue phenergan -continue duoneb -continue spiriva -on biPAP Pneumonia -ct scan: extensive fibrotic changes throughout lung ibrahim, superimposed consolidation suspected, patchy ground glass pulmonary opacities, suspected small left pleural effusion -on biPAP -on zosyn/azithromycin -duoneb -afebrile? Objective - Vital Signs/Intake and Output Vital Signs (last 24 hours): Temp Pulse Resp BP Pulse Ox 97.6 F 107 H 20 148/84 97 07/12/17 16:49 07/12/17 16:49 07/12/17 16:49 07/12/17 16:49 07/12/17 16:49 Intake and Output: 07/12/17 07/12/17 06:59 18:59 Intake Total 1200 Balance 1200 - Medications Medications: Current Medications Acetaminophen (Tylenol 325mg Tab) 650 mg PO Q6 PRN PRN Reason: Fever >100.4 F Albuterol/Ipratropium (Duoneb 3 Mg/0.5 Mg (3 Ml) Ud) 3 ml INH RQ4 [facility] Last Admin: 07/12/17 16:05 Dose: 3 ml Brimonidine Tartrate (Alphagan 0.2% Opht) 1 ml OU TID [facility] Last Admin: 07/12/17 17:40 Dose: 1 drop Calcium/Vitamin D (Oyster Shell Calcium/Vitamin D 500 Mg-200 Iu) 1 tab PO BID [facility] Last Admin: 07/12/17 09:48 Dose: 1 tab Dorzolamide HCl (Trusopt) 1 ml OU TID [facility] Last Admin: 07/12/17 17:40 Dose: 1 drop Enoxaparin Sodium (Lovenox) 40 mg SC DAILY [facility] Last Admin: 07/12/17 09:48 Dose: 40 mg Famotidine (Pepcid) 20 mg PO BID PRN PRN Reason: Dyspepsia Azithromycin 500 mg/ Sodium (Chloride) 250 mls @ 167 mls/hr IVPB Q24H [facility] Last Admin: 07/11/17 21:41 Dose: 167 mls/hr Piperacillin Sod/Tazobactam (Sod 3.375 gm/ Sodium Chloride) 100 mls @ 200 mls/ hr IVPB Q8H [facility] Last Admin: 07/12/17 14:15 Dose: 200 mls/hr Methylprednisolone (Solu-Medrol) 80 mg IVP Q6H [facility] Last Admin: 07/12/17 14:09 Dose: 80 mg Morphine Sulfate (Morphine) 1 mg IVP Q6 PRN PRN Reason: Pain, severe (8-10) Promethazine HCl/Codeine (Phenergan/Codeine Oral Syrup) 5 ml PO Q4 [facility] Last Admin: 07/12/17 17:00 Dose: 5 ml Tiotropium [place] (Spiriva) 18 mcg INH RQ24 [facility] Last Admin: 07/11/17 07:34 Dose: Not Given - Labs Labs: 07/12/17 08:22 07/12/17 08:22 PT 15.4 SECONDS (9.7-12.2) H 07/07/17 20:42 INR 1.4 07/07/17 20:42 APTT 36 SECONDS (21-34) H 07/07/17 20:42 Assessment and Plan (1) Pulmonary fibrosis Status: Acute
--- NOTE | 2017-07-12 18:39 | CP.PCM.PN ---
Subjective - Date & Time of Evaluation Date of Evaluation: 07/12/17 Time of Evaluation: 09:00 - Subjective Subjective: seen on rounds orders written cont empiric coverage for pneumonia severe pulm fibrosis with pneumonia/sepsis poor prognosis Objective - Vital Signs/Intake and Output Vital Signs (last 24 hours): Temp Pulse Resp BP Pulse Ox 97.6 F 107 H 20 148/84 97 07/12/17 16:49 07/12/17 16:49 07/12/17 16:49 07/12/17 16:49 07/12/17 16:49 Intake and Output: 07/12/17 07/12/17 06:59 18:59 Intake Total 1200 Balance 1200 - Medications Medications: Current Medications Acetaminophen (Tylenol 325mg Tab) 650 mg PO Q6 PRN PRN Reason: Fever >100.4 F Albuterol/Ipratropium (Duoneb 3 Mg/0.5 Mg (3 Ml) Ud) 3 ml INH RQ4 [facility] Last Admin: 07/12/17 16:05 Dose: 3 ml Brimonidine Tartrate (Alphagan 0.2% Opht) 1 ml OU TID [facility] Last Admin: 07/12/17 17:40 Dose: 1 drop Calcium/Vitamin D (Oyster Shell Calcium/Vitamin D 500 Mg-200 Iu) 1 tab PO BID [facility] Last Admin: 07/12/17 17:49 Dose: Not Given Dorzolamide HCl (Trusopt) 1 ml OU TID [facility] Last Admin: 07/12/17 17:40 Dose: 1 drop Enoxaparin Sodium (Lovenox) 40 mg SC DAILY [facility] Last Admin: 07/12/17 09:48 Dose: 40 mg Famotidine (Pepcid) 20 mg PO BID PRN PRN Reason: Dyspepsia Azithromycin 500 mg/ Sodium (Chloride) 250 mls @ 167 mls/hr IVPB Q24H [facility] Last Admin: 07/11/17 21:41 Dose: 167 mls/hr Piperacillin Sod/Tazobactam (Sod 3.375 gm/ Sodium Chloride) 100 mls @ 200 mls/ hr IVPB Q8H [facility] Last Admin: 07/12/17 14:15 Dose: 200 mls/hr Methylprednisolone (Solu-Medrol) 80 mg IVP Q6H [facility] Last Admin: 07/12/17 14:09 Dose: 80 mg Morphine Sulfate (Morphine) 1 mg IVP Q6 PRN PRN Reason: Pain, severe (8-10) Promethazine HCl/Codeine (Phenergan/Codeine Oral Syrup) 5 ml PO Q4 [facility] Last Admin: 07/12/17 17:00 Dose: 5 ml Tiotropium [place] (Spiriva) 18 mcg INH RQ24 [facility] Last Admin: 07/11/17 07:34 Dose: Not Given - Labs Labs: 07/12/17 08:22 07/12/17 08:22 PT 15.4 SECONDS (9.7-12.2) H 07/07/17 20:42 INR 1.4 07/07/17 20:42 APTT 36 SECONDS (21-34) H 07/07/17 20:42 - Constitutional Appears: Confused, Chronically Ill - Head Exam Head Exam: NORMOCEPHALIC - Eye Exam Eye Exam: PERRL. absent: Scleral icterus - ENT Exam ENT Exam: Mucous Membranes Dry - Neck Exam Neck Exam: absent: Lymphadenopathy - Respiratory Exam Respiratory Exam: Decreased Breath Sounds, Prolonged Expiratory Phase, Rhonchi - Cardiovascular Exam Cardiovascular Exam: REGULAR RHYTHM - GI/Abdominal Exam GI & Abdominal Exam: Distended - Rectal Exam Rectal Exam: Deferred - Exam Exam: NORMAL INSPECTION Assessment and Plan (1) Pneumonia Status: Acute (2) Bronchitis Status: Acute (3) Cough Status: Acute (4) Dyspnea Status: Acute (5) Hypoxia Status: Acute (6) Leukocytosis Status: Acute (7) Pulmonary fibrosis Status: Acute - Assessment and Plan (Free Text) Assessment: seen on rounds orders written cont empiric coverage for pneumonia severe pulm fibrosis with pneumonia/sepsis poor prognosis
[2017-07-12] MEDS: Azithromycin 500 MG in Sodium Chloride 0.9% 250 ML IVPB SCH (21:00)
[2017-07-13] MEDS: Albuterol-Ipratrop 3 mg / 0.5 (3 ml) UD INH SCH ×2 (00:12→03:27)
--- NOTE | 2017-07-13 00:13 | CP.PCM.PN ---
Subjective - Date & Time of Evaluation Date of Evaluation: 07/09/17 Time of Evaluation: 11:30 Objective - Vital Signs/Intake and Output Vital Signs (last 24 hours): Temp Pulse Resp BP Pulse Ox 97.6 F 107 H 20 148/84 97 07/12/17 16:49 07/12/17 16:49 07/12/17 16:49 07/12/17 16:49 07/12/17 16:49 - Medications Medications: Current Medications Acetaminophen (Tylenol 325mg Tab) 650 mg PO Q6 PRN PRN Reason: Fever >100.4 F Albuterol/Ipratropium (Duoneb 3 Mg/0.5 Mg (3 Ml) Ud) 3 ml INH RQ4 [facility] Last Admin: 07/13/17 00:12 Dose: 3 ml Brimonidine Tartrate (Alphagan 0.2% Opht) 1 ml OU TID [facility] Last Admin: 07/12/17 17:40 Dose: 1 drop Calcium/Vitamin D (Oyster Shell Calcium/Vitamin D 500 Mg-200 Iu) 1 tab PO BID [facility] Last Admin: 07/12/17 17:49 Dose: Not Given Dorzolamide HCl (Trusopt) 1 ml OU TID [facility] Last Admin: 07/12/17 17:40 Dose: 1 drop Enoxaparin Sodium (Lovenox) 40 mg SC DAILY [facility] Last Admin: 07/12/17 09:48 Dose: 40 mg Famotidine (Pepcid) 20 mg PO BID PRN PRN Reason: Dyspepsia Azithromycin 500 mg/ Sodium (Chloride) 250 mls @ 167 mls/hr IVPB Q24H [facility] Last Admin: 07/12/17 21:00 Dose: 167 mls/hr Piperacillin Sod/Tazobactam (Sod 3.375 gm/ Sodium Chloride) 100 mls @ 200 mls/ hr IVPB Q8H [facility] Last Admin: 07/12/17 22:20 Dose: 200 mls/hr Methylprednisolone (Solu-Medrol) 80 mg IVP Q6H [facility] Last Admin: 07/12/17 19:30 Dose: 80 mg Morphine Sulfate (Morphine) 1 mg IVP Q6 PRN PRN Reason: Pain, severe (8-10) Promethazine HCl/Codeine (Phenergan/Codeine Oral Syrup) 5 ml PO Q4 [facility] Last Admin: 07/12/17 19:43 Dose: Not Given Tiotropium [place] (Spiriva) 18 mcg INH RQ24 [facility] Last Admin: 07/11/17 07:34 Dose: Not Given - Labs Labs: 07/12/17 08:22 07/12/17 08:22 PT 15.4 SECONDS (9.7-12.2) H 07/07/17 20:42 INR 1.4 07/07/17 20:42 APTT 36 SECONDS (21-34) H 07/07/17 20:42
--- NOTE | 2017-07-13 00:14 | CP.PCM.PN ---
Subjective - Date & Time of Evaluation Date of Evaluation: 07/10/17 Objective - Vital Signs/Intake and Output Vital Signs (last 24 hours): Temp Pulse Resp BP Pulse Ox 97.6 F 107 H 20 148/84 97 07/12/17 16:49 07/12/17 16:49 07/12/17 16:49 07/12/17 16:49 07/12/17 16:49 - Medications Medications: Current Medications Acetaminophen (Tylenol 325mg Tab) 650 mg PO Q6 PRN PRN Reason: Fever >100.4 F Albuterol/Ipratropium (Duoneb 3 Mg/0.5 Mg (3 Ml) Ud) 3 ml INH RQ4 [facility] Last Admin: 07/13/17 00:12 Dose: 3 ml Brimonidine Tartrate (Alphagan 0.2% Opht) 1 ml OU TID [facility] Last Admin: 07/12/17 17:40 Dose: 1 drop Calcium/Vitamin D (Oyster Shell Calcium/Vitamin D 500 Mg-200 Iu) 1 tab PO BID [facility] Last Admin: 07/12/17 17:49 Dose: Not Given Dorzolamide HCl (Trusopt) 1 ml OU TID [facility] Last Admin: 07/12/17 17:40 Dose: 1 drop Enoxaparin Sodium (Lovenox) 40 mg SC DAILY [facility] Last Admin: 07/12/17 09:48 Dose: 40 mg Famotidine (Pepcid) 20 mg PO BID PRN PRN Reason: Dyspepsia Azithromycin 500 mg/ Sodium (Chloride) 250 mls @ 167 mls/hr IVPB Q24H [facility] Last Admin: 07/12/17 21:00 Dose: 167 mls/hr Piperacillin Sod/Tazobactam (Sod 3.375 gm/ Sodium Chloride) 100 mls @ 200 mls/ hr IVPB Q8H [facility] Last Admin: 07/12/17 22:20 Dose: 200 mls/hr Methylprednisolone (Solu-Medrol) 80 mg IVP Q6H [facility] Last Admin: 07/12/17 19:30 Dose: 80 mg Morphine Sulfate (Morphine) 1 mg IVP Q6 PRN PRN Reason: Pain, severe (8-10) Promethazine HCl/Codeine (Phenergan/Codeine Oral Syrup) 5 ml PO Q4 [facility] Last Admin: 07/12/17 19:43 Dose: Not Given Tiotropium [place] (Spiriva) 18 mcg INH RQ24 [facility] Last Admin: 07/11/17 07:34 Dose: Not Given - Labs Labs: 07/12/17 08:22 07/12/17 08:22 PT 15.4 SECONDS (9.7-12.2) H 07/07/17 20:42 INR 1.4 07/07/17 20:42 APTT 36 SECONDS (21-34) H 07/07/17 20:42
--- NOTE | 2017-07-13 00:15 | CP.PCM.PN ---
Subjective - Date & Time of Evaluation Date of Evaluation: 07/11/17 Objective - Vital Signs/Intake and Output Vital Signs (last 24 hours): Temp Pulse Resp BP Pulse Ox 97.6 F 107 H 20 148/84 97 07/12/17 16:49 07/12/17 16:49 07/12/17 16:49 07/12/17 16:49 07/12/17 16:49 - Medications Medications: Current Medications Acetaminophen (Tylenol 325mg Tab) 650 mg PO Q6 PRN PRN Reason: Fever >100.4 F Albuterol/Ipratropium (Duoneb 3 Mg/0.5 Mg (3 Ml) Ud) 3 ml INH RQ4 [facility] Last Admin: 07/13/17 00:12 Dose: 3 ml Brimonidine Tartrate (Alphagan 0.2% Opht) 1 ml OU TID [facility] Last Admin: 07/12/17 17:40 Dose: 1 drop Calcium/Vitamin D (Oyster Shell Calcium/Vitamin D 500 Mg-200 Iu) 1 tab PO BID [facility] Last Admin: 07/12/17 17:49 Dose: Not Given Dorzolamide HCl (Trusopt) 1 ml OU TID [facility] Last Admin: 07/12/17 17:40 Dose: 1 drop Enoxaparin Sodium (Lovenox) 40 mg SC DAILY [facility] Last Admin: 07/12/17 09:48 Dose: 40 mg Famotidine (Pepcid) 20 mg PO BID PRN PRN Reason: Dyspepsia Azithromycin 500 mg/ Sodium (Chloride) 250 mls @ 167 mls/hr IVPB Q24H [facility] Last Admin: 07/12/17 21:00 Dose: 167 mls/hr Piperacillin Sod/Tazobactam (Sod 3.375 gm/ Sodium Chloride) 100 mls @ 200 mls/ hr IVPB Q8H [facility] Last Admin: 07/12/17 22:20 Dose: 200 mls/hr Methylprednisolone (Solu-Medrol) 80 mg IVP Q6H [facility] Last Admin: 07/12/17 19:30 Dose: 80 mg Morphine Sulfate (Morphine) 1 mg IVP Q6 PRN PRN Reason: Pain, severe (8-10) Promethazine HCl/Codeine (Phenergan/Codeine Oral Syrup) 5 ml PO Q4 [facility] Last Admin: 07/12/17 19:43 Dose: Not Given Tiotropium [place] (Spiriva) 18 mcg INH RQ24 [facility] Last Admin: 07/11/17 07:34 Dose: Not Given - Labs Labs: 07/12/17 08:22 07/12/17 08:22 PT 15.4 SECONDS (9.7-12.2) H 07/07/17 20:42 INR 1.4 07/07/17 20:42 APTT 36 SECONDS (21-34) H 07/07/17 20:42
--- NOTE | 2017-07-13 00:16 | CP.PCM.PN ---
Subjective - Date & Time of Evaluation Date of Evaluation: 07/12/17 Time of Evaluation: 13:40 Objective - Vital Signs/Intake and Output Vital Signs (last 24 hours): Temp Pulse Resp BP Pulse Ox 97.6 F 107 H 20 148/84 97 07/12/17 16:49 07/12/17 16:49 07/12/17 16:49 07/12/17 16:49 07/12/17 16:49 - Medications Medications: Current Medications Acetaminophen (Tylenol 325mg Tab) 650 mg PO Q6 PRN PRN Reason: Fever >100.4 F Albuterol/Ipratropium (Duoneb 3 Mg/0.5 Mg (3 Ml) Ud) 3 ml INH RQ4 [facility] Last Admin: 07/13/17 00:12 Dose: 3 ml Brimonidine Tartrate (Alphagan 0.2% Opht) 1 ml OU TID [facility] Last Admin: 07/12/17 17:40 Dose: 1 drop Calcium/Vitamin D (Oyster Shell Calcium/Vitamin D 500 Mg-200 Iu) 1 tab PO BID [facility] Last Admin: 07/12/17 17:49 Dose: Not Given Dorzolamide HCl (Trusopt) 1 ml OU TID [facility] Last Admin: 07/12/17 17:40 Dose: 1 drop Enoxaparin Sodium (Lovenox) 40 mg SC DAILY [facility] Last Admin: 07/12/17 09:48 Dose: 40 mg Famotidine (Pepcid) 20 mg PO BID PRN PRN Reason: Dyspepsia Azithromycin 500 mg/ Sodium (Chloride) 250 mls @ 167 mls/hr IVPB Q24H [facility] Last Admin: 07/12/17 21:00 Dose: 167 mls/hr Piperacillin Sod/Tazobactam (Sod 3.375 gm/ Sodium Chloride) 100 mls @ 200 mls/ hr IVPB Q8H [facility] Last Admin: 07/12/17 22:20 Dose: 200 mls/hr Methylprednisolone (Solu-Medrol) 80 mg IVP Q6H [facility] Last Admin: 07/12/17 19:30 Dose: 80 mg Morphine Sulfate (Morphine) 1 mg IVP Q6 PRN PRN Reason: Pain, severe (8-10) Promethazine HCl/Codeine (Phenergan/Codeine Oral Syrup) 5 ml PO Q4 [facility] Last Admin: 07/12/17 19:43 Dose: Not Given Tiotropium [place] (Spiriva) 18 mcg INH RQ24 [facility] Last Admin: 07/11/17 07:34 Dose: Not Given - Labs Labs: 07/12/17 08:22 07/12/17 08:22 PT 15.4 SECONDS (9.7-12.2) H 07/07/17 20:42 INR 1.4 07/07/17 20:42 APTT 36 SECONDS (21-34) H 07/07/17 20:42
[2017-07-13] MEDS: Promethazine/Cod 6.25mg-10mg/5ml Syr UD PO SCH ×7 (00:50→23:48)
[2017-07-13] MEDS: Piperacillin/Tazobact 3.375 GM in Sodium Chloride 100 ML IVPB SCH ×3 (06:06→21:50)
[2017-07-13] MEDS: Tiotropium 18 mcg Cap For Inhalation INH SCH (07:38)
[2017-07-13 08:29] LABS: HEMOGLOBIN 11.2 g/dL (11.0-16.0); MEAN CELL VOLUME 86.2 fL (81.0-99.0); MEAN CORPUSCULAR HGB CONC 32.5 g/dL (33.0-37.0); MEAN PLATELET VOLUME 8.7 fL (7.2-11.7); PLATELET COUNT 240 K/uL (130-400); RBC 4.01 Mil/uL (3.80-5.20); RED CELL DISTRIBUTION WIDTH 14.5 % (11.5-14.5); WHITE BLOOD COUNT 20.5 K/uL (4.8-10.8)
[2017-07-13 09:05] LABS: ALB/GLOB RATIO 0.8 (1.0-2.1); ALBUMIN 2.9 g/dL (3.5-5.0); ALT/SGPT 36 U/L (9-52); AST/SGOT 44 U/L (14-36); BLOOD UREA NITROGEN 12 mg/dL (7-17); CALCIUM 6.7 mg/dl (8.6-10.4); GFR AFRICAN-AMERICAN > 60; GFR NON-AFRICAN AMERICAN > 60
[2017-07-13] MEDS: Calcium-Vit D 500 mg-200 Units Tab UD PO SCH ×2 (10:06→18:03)
[2017-07-13] MEDS: Brimonidine 0.2% Opth Sol (5ml) OU SCH ×3 (10:07→18:09)
[2017-07-13] MEDS: Enoxaparin 40 mg Syringe SC SCH (10:07)
[2017-07-13] MEDS: Dorzolamide 2% Opht Sol 10ml OU SCH ×3 (10:08→18:09)
[2017-07-13 10:20] LABS: LYMPH # 1.7 K/uL (1.0-4.3); MONO # 0.4 K/uL (0.0-0.8); NEUT # 18.4 K/uL (1.8-7.0)
[2017-07-13 10:22] LABS: BANDS 1 % (0-2); LYMPHOCYTE 9 % (20-40); MONOCYTE 2 % (0-10); NEUTROPHIL 88 % (50-75); PLATELET ESTIMATE NORMAL (NORMAL); TOTAL CELLS COUNTED 100
[2017-07-13 15:53] VITALS: RESP 20
--- NOTE | 2017-07-13 18:31 | CP.PCM.PN ---
Subjective - Date & Time of Evaluation Date of Evaluation: 07/13/17 Time of Evaluation: 08:00 - Subjective Subjective: weak and bedridden afebrile on bipap alert no new positive cultures Objective - Vital Signs/Intake and Output Vital Signs (last 24 hours): Temp Pulse Resp BP Pulse Ox 97.9 F 105 H 20 115/66 98 07/13/17 15:00 07/13/17 15:00 07/13/17 15:00 07/13/17 15:00 07/13/17 15:00 - Medications Medications: Current Medications Acetaminophen (Tylenol 325mg Tab) 650 mg PO Q6 PRN PRN Reason: Fever >100.4 F Brimonidine Tartrate (Alphagan 0.2% Opht) 1 ml OU TID [facility] Last Admin: 07/13/17 18:09 Dose: 1 drop Calcium/Vitamin D (Oyster Shell Calcium/Vitamin D 500 Mg-200 Iu) 1 tab PO BID [facility] Last Admin: 07/13/17 18:03 Dose: 1 tab Dorzolamide HCl (Trusopt) 1 ml OU TID [facility] Last Admin: 07/13/17 18:09 Dose: 1 drop Enoxaparin Sodium (Lovenox) 40 mg SC DAILY [facility] Last Admin: 07/13/17 10:07 Dose: 40 mg Famotidine (Pepcid) 20 mg PO BID PRN PRN Reason: Dyspepsia Azithromycin 500 mg/ Sodium (Chloride) 250 mls @ 167 mls/hr IVPB Q24H [facility] Last Admin: 07/12/17 21:00 Dose: 167 mls/hr Piperacillin Sod/Tazobactam (Sod 3.375 gm/ Sodium Chloride) 100 mls @ 200 mls/ hr IVPB Q8H [facility] Last Admin: 07/13/17 14:50 Dose: 200 mls/hr Potassium Chloride (Potassium Chloride 20 Meq/100 Ml) 20 meq in 100 mls @ 50 mls/hr IVPB Q2 [facility] Stop: 07/13/17 21:59 Last Admin: 07/13/17 18:11 Dose: 50 mls/hr Methylprednisolone (Solu-Medrol) 80 mg IVP Q6H [facility] Last Admin: 07/13/17 18:10 Dose: 80 mg Morphine Sulfate (Morphine) 1 mg IVP Q6 PRN PRN Reason: Pain, severe (8-10) Promethazine HCl/Codeine (Phenergan/Codeine Oral Syrup) 5 ml PO Q4 [facility] Last Admin: 07/13/17 18:03 Dose: 5 ml Tiotropium [place] (Spiriva) 18 mcg INH RQ24 [facility] Last Admin: 07/13/17 07:38 Dose: Not Given - Labs Labs: 07/13/17 07:55 07/13/17 07:55 PT 15.4 SECONDS (9.7-12.2) H 07/07/17 20:42 INR 1.4 07/07/17 20:42 APTT 36 SECONDS (21-34) H 07/07/17 20:42 - Head Exam Head Exam: NORMOCEPHALIC - ENT Exam ENT Exam: Mucous Membranes Dry - Neck Exam Neck Exam: absent: Lymphadenopathy - Respiratory Exam Respiratory Exam: Decreased Breath Sounds, Prolonged Expiratory Phase - Cardiovascular Exam Cardiovascular Exam: Tachycardia, +S1, +S2 - GI/Abdominal Exam GI & Abdominal Exam: Distended, Soft - Rectal Exam Rectal Exam: Deferred - Exam Exam: NORMAL INSPECTION - Extremities Exam Extremities Exam: absent: Pedal Edema - Back Exam Back Exam: absent: CVA tenderness (L), CVA tenderness (R) - Neurological Exam Neurological Exam: Awake, CN II-XII Intact Neuro motor strength exam: Left Upper Extremity: 3, Right Upper Extremity: 3, Left Lower Extremity: 3, Right Lower Extremity: 3 - Psychiatric Exam Psychiatric exam: Depressed Assessment and Plan (1) Pneumonia Status: Acute (2) Bronchitis Status: Acute (3) Cough Status: Acute (4) Dyspnea Status: Acute (5) Hypoxia Status: Acute (6) Leukocytosis Status: Acute (7) Pulmonary fibrosis Status: Acute - Assessment and Plan (Free Text) Assessment: Leukocytosis on steroids severe pulm fibrosis culturees neg thus far prognosis guarded
--- NOTE | 2017-07-13 18:43 | CP.PCM.PN ---
Subjective - Date & Time of Evaluation Date of Evaluation: 07/13/17 Time of Evaluation: 08:00 - Subjective Subjective: Patient was seen and examined at the bedside. She is on biPAP and resting comfortably. She states the cough has improved. She is tolerating her medications. Patient is DNR/DNI. Assessment/Plan Pulmonary Fibrosis -afebrile -Continue IV steroids 80 mg -continue phenergan -continue duoneb -continue spiriva -on biPAP 60% FiO2 Pneumonia -ct scan: extensive fibrotic changes throughout lung ibrahim, superimposed consolidation suspected, patchy ground glass pulmonary opacities, suspected small left pleural effusion -on biPAP 60% FfiO2 -on zosyn/azithromycin -duoneb -afebrile Objective - Vital Signs/Intake and Output Vital Signs (last 24 hours): Temp Pulse Resp BP Pulse Ox 97.9 F 105 H 20 115/66 98 07/13/17 15:00 07/13/17 15:00 07/13/17 15:00 07/13/17 15:00 07/13/17 15:00 - Medications Medications: Current Medications Acetaminophen (Tylenol 325mg Tab) 650 mg PO Q6 PRN PRN Reason: Fever >100.4 F Brimonidine Tartrate (Alphagan 0.2% Opht) 1 ml OU TID [facility] Last Admin: 07/13/17 18:09 Dose: 1 drop Calcium/Vitamin D (Oyster Shell Calcium/Vitamin D 500 Mg-200 Iu) 1 tab PO BID [facility] Last Admin: 07/13/17 18:03 Dose: 1 tab Dorzolamide HCl (Trusopt) 1 ml OU TID [facility] Last Admin: 07/13/17 18:09 Dose: 1 drop Enoxaparin Sodium (Lovenox) 40 mg SC DAILY [facility] Last Admin: 07/13/17 10:07 Dose: 40 mg Famotidine (Pepcid) 20 mg PO BID PRN PRN Reason: Dyspepsia Azithromycin 500 mg/ Sodium (Chloride) 250 mls @ 167 mls/hr IVPB Q24H [facility] Last Admin: 07/12/17 21:00 Dose: 167 mls/hr Piperacillin Sod/Tazobactam (Sod 3.375 gm/ Sodium Chloride) 100 mls @ 200 mls/ hr IVPB Q8H [facility] Last Admin: 07/13/17 14:50 Dose: 200 mls/hr Potassium Chloride (Potassium Chloride 20 Meq/100 Ml) 20 meq in 100 mls @ 50 mls/hr IVPB Q2 [facility] Stop: 07/13/17 21:59 Last Admin: 07/13/17 18:11 Dose: 50 mls/hr Methylprednisolone (Solu-Medrol) 80 mg IVP Q6H [facility] Last Admin: 07/13/17 18:10 Dose: 80 mg Morphine Sulfate (Morphine) 1 mg IVP Q6 PRN PRN Reason: Pain, severe (8-10) Promethazine HCl/Codeine (Phenergan/Codeine Oral Syrup) 5 ml PO Q4 [facility] Last Admin: 07/13/17 18:03 Dose: 5 ml Tiotropium [place] (Spiriva) 18 mcg INH RQ24 [facility] Last Admin: 07/13/17 07:38 Dose: Not Given - Labs Labs: 07/13/17 07:55 07/13/17 07:55 PT 15.4 SECONDS (9.7-12.2) H 07/07/17 20:42 INR 1.4 07/07/17 20:42 APTT 36 SECONDS (21-34) H 07/07/17 20:42 Assessment and Plan (1) Pulmonary fibrosis Status: Acute
[2017-07-13] MEDS: Azithromycin 500 MG in Sodium Chloride 0.9% 250 ML IVPB SCH (22:55)
[2017-07-14] MEDS: Promethazine/Cod 6.25mg-10mg/5ml Syr UD PO SCH ×4 (05:40→16:20)
[2017-07-14] MEDS: Piperacillin/Tazobact 3.375 GM in Sodium Chloride 100 ML IVPB SCH ×2 (06:09→13:46)
[2017-07-14 08:52] VITALS: O2SAT 100
[2017-07-14] MEDS: Tiotropium 18 mcg Cap For Inhalation INH SCH (10:18)
--- NOTE | 2017-07-14 10:19 | CP.PCM.PN ---
Subjective - Date & Time of Evaluation Date of Evaluation: 07/14/17 Time of Evaluation: 08:45 - Subjective Subjective: the patient seen and examined Remains on BiPAP Cough much better Afebrile The patient is DNR/DNI Continue IV steroids, nebulizer treatment and antibiotics for now Objective - Vital Signs/Intake and Output Vital Signs (last 24 hours): Temp Pulse Resp BP Pulse Ox 97.3 F L 95 H 20 163/94 H 100 07/14/17 08:51 07/14/17 08:51 07/14/17 08:51 07/14/17 08:51 07/14/17 08:51 Intake and Output: 07/14/17 07/14/17 06:59 18:59 Output Total 1200 Balance -1200 - Medications Medications: Current Medications Acetaminophen (Tylenol 325mg Tab) 650 mg PO Q6 PRN PRN Reason: Fever >100.4 F Brimonidine Tartrate (Alphagan 0.2% Opht) 1 ml OU TID [facility] Last Admin: 07/13/17 18:09 Dose: 1 drop Calcium/Vitamin D (Oyster Shell Calcium/Vitamin D 500 Mg-200 Iu) 1 tab PO BID [facility] Last Admin: 07/13/17 18:03 Dose: 1 tab Dorzolamide HCl (Trusopt) 1 ml OU TID [facility] Last Admin: 07/13/17 18:09 Dose: 1 drop Enoxaparin Sodium (Lovenox) 40 mg SC DAILY [facility] Last Admin: 07/13/17 10:07 Dose: 40 mg Famotidine (Pepcid) 20 mg PO BID PRN PRN Reason: Dyspepsia Azithromycin 500 mg/ Sodium (Chloride) 250 mls @ 167 mls/hr IVPB Q24H [facility] Last Admin: 07/13/17 22:55 Dose: 167 mls/hr Piperacillin Sod/Tazobactam (Sod 3.375 gm/ Sodium Chloride) 100 mls @ 200 mls/ hr IVPB Q8H [facility] Last Admin: 07/14/17 06:09 Dose: 200 mls/hr Methylprednisolone (Solu-Medrol) 80 mg IVP Q6H [facility] Last Admin: 07/14/17 06:10 Dose: 80 mg Morphine Sulfate (Morphine) 1 mg IVP Q6 PRN PRN Reason: Pain, severe (8-10) Promethazine HCl/Codeine (Phenergan/Codeine Oral Syrup) 5 ml PO Q4 [facility] Last Admin: 07/14/17 07:57 Dose: 5 ml Tiotropium [place] (Spiriva) 18 mcg INH RQ24 [facility] Last Admin: 07/13/17 07:38 Dose: Not Given - Labs Labs: 07/13/17 07:55 07/13/17 07:55 PT 15.4 SECONDS (9.7-12.2) H 07/07/17 20:42 INR 1.4 07/07/17 20:42 APTT 36 SECONDS (21-34) H 07/07/17 20:42 Assessment and Plan (1) Pulmonary fibrosis Status: Acute
[2017-07-14] MEDS: Dorzolamide 2% Opht Sol 10ml OU SCH ×2 (10:44→13:39)
[2017-07-14] MEDS: Calcium-Vit D 500 mg-200 Units Tab UD PO SCH (10:44)
[2017-07-14] MEDS: Brimonidine 0.2% Opth Sol (5ml) OU SCH ×2 (10:45→13:39)
[2017-07-14] MEDS: Enoxaparin 40 mg Syringe SC SCH (10:45)
--- NOTE | 2017-07-14 16:00 | CP.PCM.PN ---
Subjective - Date & Time of Evaluation Date of Evaluation: 07/14/17 Time of Evaluation: 16:00 - Subjective Subjective: PATIENT WAS ADMITTING FOR [facility] ON BIPAP NO SIGN OF ACUTE DISTRESS NOTED Objective - Vital Signs/Intake and Output Vital Signs (last 24 hours): Temp Pulse Resp BP Pulse Ox 97.3 F L 88 20 163/94 H 100 07/14/17 08:51 07/14/17 10:19 07/14/17 08:51 07/14/17 08:51 07/14/17 08:51 Intake and Output: 07/14/17 07/14/17 06:59 18:59 Output Total 1200 Balance -1200 - Medications Medications: Current Medications Acetaminophen (Tylenol 325mg Tab) 650 mg PO Q6 PRN PRN Reason: Fever >100.4 F Brimonidine Tartrate (Alphagan 0.2% Opht) 1 ml OU TID [facility] Last Admin: 07/14/17 13:39 Dose: 1 drop Calcium/Vitamin D (Oyster Shell Calcium/Vitamin D 500 Mg-200 Iu) 1 tab PO BID [facility] Last Admin: 07/14/17 10:44 Dose: 1 tab Dorzolamide HCl (Trusopt) 1 ml OU TID [facility] Last Admin: 07/14/17 13:39 Dose: 1 drop Enoxaparin Sodium (Lovenox) 40 mg SC DAILY [facility] Last Admin: 07/14/17 10:45 Dose: 40 mg Famotidine (Pepcid) 20 mg PO BID PRN PRN Reason: Dyspepsia Azithromycin 500 mg/ Sodium (Chloride) 250 mls @ 167 mls/hr IVPB Q24H [facility] Last Admin: 07/13/17 22:55 Dose: 167 mls/hr Piperacillin Sod/Tazobactam (Sod 3.375 gm/ Sodium Chloride) 100 mls @ 200 mls/ hr IVPB Q8H [facility] Last Admin: 07/14/17 13:46 Dose: 200 mls/hr Methylprednisolone (Solu-Medrol) 80 mg IVP Q6H [facility] Last Admin: 07/14/17 13:38 Dose: 80 mg Promethazine HCl/Codeine (Phenergan/Codeine Oral Syrup) 5 ml PO Q4 [facility] Last Admin: 07/14/17 12:55 Dose: 5 ml Tiotropium [place] (Spiriva) 18 mcg INH RQ24 [facility] Last Admin: 07/14/17 10:18 Dose: Not Given - Labs Labs: 07/13/17 07:55 07/13/17 07:55 PT 15.4 SECONDS (9.7-12.2) H 07/07/17 20:42 INR 1.4 07/07/17 20:42 APTT 36 SECONDS (21-34) H 07/07/17 20:42 Assessment and Plan - Assessment and Plan (Free Text) Assessment: PATIENT SEEN AND EXAMINED BIPAP CONT FOR SEVER PULM [facility] EVAL WAS DONE AND FAMILY AGREE TO HOME HOSPICE [facility] DISCUSS WITH DR CALVO AND DR SIDHU WHO AGREE WITH THE PLAN FOLLOW UP WITH DR SIDHU --CALL HIS OFFICE FOR QUESTIONS CONTINUE ALL YOUR HOME MEDICATION ORDER NEW PRESCRIPTION GIVEN LEVAQUIN 500 MG DAILY FOR 7 DAYS PEDNISONE 60 MG BY MOUTH DAILY PLACE [facility] CARE CALL DR SIDHU FOR FURTHER ORDER
[2017-07-14 16:21] VITALS: BP 161/90; PULSE 90; TEMP 97.6
--- NOTE | 2017-07-14 22:52 | CP.PCM.PN ---
Subjective - Date & Time of Evaluation Date of Evaluation: 07/13/17 Time of Evaluation: 17:20 Objective - Vital Signs/Intake and Output Vital Signs (last 24 hours): Temp Pulse Resp BP Pulse Ox 97.6 F 90 20 161/90 H 100 07/14/17 16:20 07/14/17 16:20 07/14/17 16:20 07/14/17 16:20 07/14/17 16:20 - Labs Labs: 07/13/17 07:55 07/13/17 07:55 PT 15.4 SECONDS (9.7-12.2) H 07/07/17 20:42 INR 1.4 07/07/17 20:42 APTT 36 SECONDS (21-34) H 07/07/17 20:42 Assessment and Plan (1) Multifocal pneumonia Status: Acute
--- NOTE | 2017-07-14 22:52 | CP.PCM.DIS ---
Provider - Provider Date of Admission: 07/07/17 21:19 Attending physician: Nakita Yen MD Time Spent in preparation of Discharge (in minutes): 25 Diagnosis - Discharge Diagnosis (1) Multifocal pneumonia Status: Acute Priority: High Hospital Course - Lab Results Lab Results: Micro Results 07/07/17 20:00 Blood Blood Culture - Final NO GROWTH AFTER 5 DAYS 07/07/17 20:00 Blood Gram Stain - Final TEST NOT PERFORMED 07/07/17 19:30 Blood Blood Culture - Final NO GROWTH AFTER 5 DAYS 07/07/17 19:30 Blood Gram Stain - Final TEST NOT PERFORMED 07/08/17 23:27 Sputum Gram Stain - Final 07/08/17 23:27 Sputum Sputum Culture - Final Yeast Species Most Recent Lab Values WBC 20.5 K/uL (4.8-10.8) H 07/13/17 07:55 RBC 4.01 Mil/uL (3.80-5.20) 07/13/17 07:55 Hgb 11.2 g/dL (11.0-16.0) 07/13/17 07:55 Hct 34.6 % (34.0-47.0) 07/13/17 07:55 MCV 86.2 fL (81.0-99.0) 07/13/17 07:55 MCH 28.0 pg (27.0-31.0) 07/13/17 07:55 MCHC 32.5 g/dL (33.0-37.0) L 07/13/17 07:55 RDW 14.5 % (11.5-14.5) 07/13/17 07:55 Plt Count 240 K/uL (130-400) 07/13/17 07:55 MPV 8.7 fL (7.2-11.7) 07/13/17 07:55 Neut % (Auto) 90.0 % (50.0-75.0) H 07/13/17 07:55 Lymph % (Auto) 8.0 % (20.0-40.0) L 07/13/17 07:55 Sterling % (Auto) 2.0 % (0.0-10.0) 07/13/17 07:55 Eos % (Auto) 0.0 % (0.0-4.0) 07/13/17 07:55 Baso % (Auto) 0.0 % (0.0-2.0) 07/13/17 07:55 Neut # (Auto) 18.4 K/uL (1.8-7.0) H 07/13/17 07:55 Lymph # (Auto) 1.7 K/uL (1.0-4.3) 07/13/17 07:55 Sterling # (Auto) 0.4 K/uL (0.0-0.8) 07/13/17 07:55 Eos # (Auto) 0.0 K/uL (0.0-0.7) 07/13/17 07:55 Baso # (Auto) 0.0 K/uL (0.0-0.2) 07/13/17 07:55 Neutrophils % (Manual) 88 % (50-75) H 07/13/17 07:55 Band Neutrophils % 1 % (0-2) 07/13/17 07:55 Lymphocytes % (Manual) 9 % (20-40) L 07/13/17 07:55 Monocytes % (Manual) 2 % (0-10) 07/13/17 07:55 Metamyelocytes % 2 % (0-0) H 07/10/17 11:48 Myelocytes % 2 % (0-0) H 07/10/17 11:48 Nucleated RBC % 1 % (0-0) H 07/09/17 08:24 Platelet Estimate Normal (NORMAL) 07/13/17 07:55 RBC Morphology Normal 07/12/17 08:22 Hypochromasia (manual) Slight 07/11/17 08:00 Poikilocytosis (manual Slight 07/11/17 08:00 Basophilic Stippling Slight 07/13/17 07:55 Anisocytosis (manual) Slight 07/11/17 08:00 Macrocytosis (manual) Slight 07/09/17 08:24 Ovalocytes Slight 07/09/17 08:24 PT 15.4 SECONDS (9.7-12.2) H 07/07/17 20:42 INR 1.4 07/07/17 20:42 APTT 36 SECONDS (21-34) H 07/07/17 20:42 Puncture Site Lb 07/11/17 10:40 pCO2 50 mm/Hg (35-45) H 07/11/17 10:40 pO2 84 mm/Hg (80-100) 07/11/17 10:40 HCO3 27.5 mmol/L (21-28) 07/11/17 10:40 ABG pH 7.38 (7.35-7.45) 07/11/17 10:40 ABG Total CO2 31.1 mmol/L (22-28) H 07/11/17 10:40 ABG O2 Saturation 97.2 % (95-98) 07/11/17 10:40 ABG Base Excess 3.4 mmol/L (-2.0-3.0) H 07/11/17 10:40 Kavin Test Na 07/11/17 10:40 ABG Potassium 2.6 mmol/L (3.6-5.2) L 07/11/17 10:40 A-a O2 Difference 567.0 mm/Hg 07/11/17 10:40 Respiratory Index 6.8 07/11/17 10:40 Sodium 145.0 mmol/l (132-148) 07/11/17 10:40 Chloride 111.0 mmol/L (98-107) H 07/11/17 10:40 Glucose 153 mg/dl (65-105) H 07/11/17 10:40 Lactate 2.0 mmol/L (0.7-2.1) 07/11/17 10:40 FiO2 100.0 % 07/11/17 10:40 Crit Value Called To Dr cagle 07/11/17 10:40 Crit Value Called By [facility] 07/11/17 10:40 Crit Value Read Back Y 07/11/17 10:40 Blood Gas Notified Time 1045 07/11/17 10:40 Sodium 140 mmol/L (132-148) 07/13/17 07:55 Potassium 3.2 mmol/L (3.6-5.2) L 07/13/17 07:55 Chloride 92 mmol/L (98-107) L 07/13/17 07:55 Carbon Dioxide 38 mmol/L (22-30) H 07/13/17 07:55 Anion Gap 13 (10-20) 07/13/17 07:55 BUN 12 mg/dL (7-17) 07/13/17 07:55 Creatinine 0.5 mg/dL (0.7-1.2) L 07/13/17 07:55 Est GFR ( Amer) > 60 07/13/17 07:55 Est GFR (Non-Af Amer) > 60 07/13/17 07:55 POC Glucose (mg/dL) 122 mg/dL (65-110) H 07/12/17 03:55 Random Glucose 123 mg/dL (65-105) H 07/13/17 07:55 Lactic Acid 1.9 mmol/L (0.7-2.1) 07/07/17 20:31 Calcium 6.7 mg/dl (8.6-10.4) L 07/13/17 07:55 Total Bilirubin 0.9 mg/dL (0.2-1.3) 07/13/17 07:55 AST 44 U/L (14-36) H 07/13/17 07:55 ALT 36 U/L (9-52) 07/13/17 07:55 Alkaline Phosphatase 87 U/L (38-126) 07/13/17 07:55 Troponin I < 0.0120 ng/mL (0.00-0.120) 07/07/17 20:42 NT-Pro-B Natriuret Pep 580 pg/mL (0-900) 07/07/17 20:42 Total Protein 6.5 g/dL (6.3-8.3) 07/13/17 07:55 Albumin 2.9 g/dL (3.5-5.0) L 07/13/17 07:55 Globulin 3.5 gm/dL (2.2-3.9) 07/13/17 07:55 Albumin/Globulin Ratio 0.8 (1.0-2.1) L 07/13/17 07:55 Lipase 45 U/L (23-300) 07/07/17 20:42 TSH 3rd Generation 0.57 mIU/L (0.46-4.68) 07/09/17 08:24 Arterial Blood Potassium 2.6 mmol/L (3.6-5.2) L 07/11/17 10:40 Influenza Typ A,B (EIA) Negative for flu a/b (NEGATIVE) 07/07/17 22:49 Discharge Exam - Head Exam Head Exam: NORMOCEPHALIC Discharge Plan - Discharge Medications Prescriptions: levoFLOXacin [Levaquin] 500 mg PO DAILY #7 tab predniSONE [predniSONE Tab] 60 mg PO DAILY #30 tab - Follow Up Plan Condition: STABLE Disposition: HOME/ ROUTINE Instructions: Levofloxacin (Systemic), Pneumonia, Adult (DC), Acute Abdomen ( Belly Pain), Prednisone Additional Instructions: FOLLOW UP WITH DR YEN --CALL HIS OFFICE FOR QUESTIONS CONTINUE ALL YOUR HOME MEDICATION ORDER NEW PRESCRIPTION GIVEN LEVAQUIN 500 MG DAILY FOR 7 DAYS PEDNISONE 60 MG BY MOUTH DAILY [facility] CALL DR YEN FOR FURTHER ORDER Referrals: Nakita Yen MD [Medical Doctor] -
== END 2017-07-14 19:39 | disposition home or self-care (01) | DRG 195 ==
LOC: C.ER 19:16 → C.9E 21:19 → C.5S 21:19
PROVIDERS: ADMIT Internal Medicine; ATTEND Internal Medicine
DX: J18.9 Pneumonia, unspecified organism (principal); I50.9 Heart failure, unspecified; J84.10 Pulmonary fibrosis, unspecified; D64.9 Anemia, unspecified; J40 Bronchitis, not specified as acute or chronic; R09.02 Hypoxemia; R32 Unspecified urinary incontinence; Z51.5 Encounter for palliative care; Z66 Do not resuscitate; Z74.01 Bed confinement status; G47.00 Insomnia, unspecified; F43.21 Adjustment disorder with depressed mood; F41.9 Anxiety disorder, unspecified; H40.9 Unspecified glaucoma; H54.61 Unqualified visual loss, right eye, normal vision left eye; Z68.21 Body mass index [BMI] 21.0-21.9, adult